=== PATIENT | female | born 1980 | race African-American/Black ===

== ENCOUNTER 2016-08-23 10:58 | Inpatient (IN) | payer OTHER ==
[2016-08-23] MEDS ORDERED: OXYCODONE/APAP 5/325MG COMBO TABLET PO ONE (12:12)
[2016-08-23] MEDS ORDERED: OXYCODONE/APAP 5/325MG COMBO TABLET ONE (12:14)
[2016-08-23] MEDS ORDERED: ACTIVATED CHARCOAL 260 MG CAPSULE PO ONE (14:14)
[2016-08-23] MEDS ORDERED: ACETYLCYSTEINE 20% 200MG/ML 30ML VIAL *FOR INJECTION USE ONLY IVPB ONE ×9 (14:17→17:39)
[2016-08-23] MEDS ORDERED: morphine CARPU-JECT 2 MG/1 ML DISP.SYRIN IVPUSH ONE (14:21)
--- NOTE | 2016-08-23 14:34 | PDOC ---
Attending Attestation - Resident Resident Name: Heather Calleudmila - ED Attending Attestation I have performed the following: I have examined & evaluated the patient, The case was reviewed & discussed with the resident, I agree w/resident's findings & plan, Exceptions are as noted - HPI HPI: 08/23/16 14:26 36y/o F HIV, h/o NHL p/w facial swelling and pain s/p wisdom tooth extraction. Referred from [facility]. reports taking tylenol doses concerning for overdose. - Physicial Exam PE: 08/23/16 14:27 VSS well appearing and ambulating no jaundice - Critical Care Time Total Critical Care Time: 30 Critical Care Statement: The care of this patient involved high complexity decision making to prevent further life threatening deterioration of the patient 's condition and/or to evalute & treat vital organ system(s) failure or risk of failure. - Medical Decision Making 08/23/16 14:30 Patient seen and evaluated with the resident. I agree with the overall evaluation, assessment, and management with the following summary of visit: 36y/o F p/w likely dental infection following tooth extraction, r/o abscess. Will require abx and CT. More concerning, pt has ingested about 15g of tylenol over the last 24h. apap level, LFTs, coags empirically start NAC involve PCC dispo accordingly 08/23/16 16:19 normal ast/alt/INR with apap level 25.6. continue NAC, PCC agrees. r/o facial abscess with CT, receiving IV abx.
[2016-08-23] MEDS ORDERED: morphine CARPU-JECT 2 MG/1 ML DISP.SYRIN ONE (14:44)
[2016-08-23] MEDS ORDERED: CHARCOAL/WATER SOLUTION 25 GM/120 ML TUBE ONE (14:46)
[2016-08-23 15:15] LABS: BASOPHIL 0.5 % (0-2.0); EOSINOPHIL 2.7 % (0-4.5); MCH 27.9 pg (25.7-33.7); MCHC 31.9 g/dl (32.0-36.0); MEAN CELL VOLUME 87.3 fl (80-96); MEAN PLT VOLUME 9.9 fl (7.5-11.1); PLATELET COUNT 211 K/MM3 (134-434); RDW 17.8 % (11.6-15.6); WHITE BLOOD COUNT 3.7 K/mm3 (4.0-10.0)
--- NOTE | 2016-08-23 15:16 | PDOC ---
History of Present Illness - General Chief Complaint: Toothache Stated Complaint: PAIN Time Seen by Provider: 08/23/16 11:13 History Source: Patient Exam Limitations: No Limitations - History of Present Illness Initial Comments: 08/23/16 17:00 This is a 36 yo F with PMH of Non Hodgkin lymphoma (last chemo 3 mo ago, has port, had a brain biopsy), HIV, HTN, opioid dependence on methadone, gastritis, ADHD and bipolar disorder, who presents due to L facial pain. She had a left inferior wisdom tooth extracted 08/16/16 and has been on PO Clindamycin. A few days ago her left cheek became swollen, very painful, causing shooting pains in her face, neck and head. She has a left sided h/a. She has not had f/c or difficulty swallowing. Her pain was so severe that yesterday she tool a whole bottle of her prescribed tylenol and a whole bottle of tylenol given to her by a friend. she also took a bottle of ibuprofen 900. Her total tylenol intake over 24 hr has been 15.5g, 14 g yestarday and 1.5 g today (total over 24 hr: tylenol 300x30 pills+ tylenol 325x20 pills, this includes the percocet she tool at home and here) She denies chest pain, sob, abd pain, n/v, diarrhea, constipation, dysuria, confusion) She receives care at [facility] 08/23/16 17:03 08/23/16 17:11 Past History - Travel Traveled outside of the country in the last 30 days: No Close contact w/someone who was outside of country & ill: No - Past Medical History Allergies/Adverse Reactions: Allergies Allergy/AdvReac Type Severity Reaction Status Date / Time peanut [Peanut] Allergy Hives Verified 08/23/16 11:06 ceftriaxone sodium AdvReac Hives Verified 08/23/16 11:06 [From Rocephin] sulfamethoxazole AdvReac Hives Verified 08/23/16 11:06 [From Bactrim] trimethoprim [From Bactrim] AdvReac Hives Verified 08/23/16 11:06 Home Medications: Ambulatory Orders Amlodipine Besylate 10 mg PO DAILY #30 tablet 07/28/15 Aripiprazole [Abilify] 5 mg PO AM #30 tablet 06/09/16 Lamotrigine [Lamictal] 25 mg PO HS #60 tablet MDD 50mg 08/20/15 Methadone [Dolophine -] 70 mg PO DAILY 08/23/15 Dapsone - 100 mg PO DAILY #30 tablet 02/02/16 Ibuprofen [Motrin -] 600 mg PO QID PRN #28 tablet 02/02/16 Loratadine 10 mg PO DAILY #30 tablet 02/02/16 Ondansetron HCl [Zofran] 8 mg PO Q12H #4 tablet MDD 2 02/02/16 Amlodipine Besylate [Norvasc -] 10 mg PO DAILY #30 tablet 07/16/16 Emtricitab/Rilpivirine/Tenofov [Complera Tablet -] 1 each PO DAILY #30 tablet Enoxaparin [Lovenox -] 120 mg SQ BID #60 disp.syrin 07/16/16 Metoprolol Tartrate [Lopressor -] 25 mg PO DAILY #30 tablet 07/16/16 Anemia: No Asthma: No Cancer: Yes (NON-HODGKINS LYMPHOMA,LAST CHEMO 3 M AGO) Cardiac Disorders: No CVA: No COPD: No CHF: No Dementia: No Diabetes: No GI Disorders: No Disorders: No HTN: Yes Hypercholesterolemia: No HIV: Yes Kidney Stones: No Liver Disease: No Psychiatric Problems: Yes Suicide Attempt (Hx): No Seizures: No Thyroid Disease: No - Surgical History Abdominal Surgery: No Appendectomy: No Cardiac Surgery: No Cholecystectomy: No Lung Surgery: No Neurologic Surgery: No - Reproductive History PID: No - Psycho/Social/Smoking Cessation Hx Anxiety: No Suicidal Ideation: No Smoking Status: Yes Smoking History: Current every day smoker Have you smoked in the past 12 months: Yes Number of Cigarettes Smoked Daily: 10 Cigars Per Day: 0 Information on smoking cessation initiated: No 'Breaking Loose' booklet given: 09/16/14 Hx Alcohol Use: No Drug/Substance Use Hx: No Substance Use Type: None Hx Substance Use Treatment: Yes Review of Systems - Review of Systems Able to Perform ROS?: Yes Is the patient limited [place] proficient: No Constitutional: No: Chills, Fever HEENTM: Yes: Mouth Pain, Dental Problems, Mouth Swelling (left side). No: Blurred Vision, Nose Congestion, Tinnitus, Nose Bleeding, Throat Pain, Throat Swelling, Difficulty Swallowing Respiratory: No: Cough, Orthopnea, Shortness of Breath Cardiac (ROS): No: Chest Pain, Edema, Irregular Heart Rate, Lightheadedness, Palpitations, Syncope ABD/GI: No: Constipated, Diarrhea, Nausea, Rectal Bleeding, Vomiting, Tarry Stools : No: Dysuria, Flank Pain Musculoskeletal: No: Back Pain Integumentary: No: Bruising, Rash, Sweating Neurological: No: Headache, Numbness, Paresthesia, Seizure, Dizziness Psychiatric: No: Anxiety, Depression Endocrine: No: Intolerance to Heat, Increased Hunger, Change in Weight Hematologic/Lymphatic: Yes: Lymph Node Abnormalities, Swollen Glands. No: Anemia, Blood Clots, Easy Bleeding, Easy Bruising All Other Systems: Reviewed and Negative *Physical Exam - Vital Signs Last Vital Signs Temp Pulse Resp BP Pulse Ox 98.6 F 68 18 170/107 98 08/23/16 11:00 08/23/16 11:00 08/23/16 11:00 08/23/16 11:00 08/23/16 11:00 - Physical Exam Comments: 08/23/16 17:13 GENERAL: moderate distress, AAOx3 HEENT: PERRLA EOMI, L cheek indurated, very tender, L inferior wisdom tooth s/p removal, no purulence. No scleral icterus or sublingual jaundice. CV:rrr s1s2 PULM:cta b/l GI: obese, soft, nontender, nondistended, no mass, normoactive bowel sounds SKIN: no lesions EXTREMITIES: no edema 08/23/16 17:15 ED Treatment Course - LABORATORY CBC & Chemistry Diagram: 08/23/16 15:00 08/23/16 15:00 - Medications Given in the ED: ED Medications Discontinued Medications Generic Name Dose Route Start Last Admin Trade Name Freq PRN Reason Stop Dose Admin Morphine Sulfate 2 mg 08/23/16 14:21 08/23/16 14:58 Morphine Injection - IVPUSH 08/23/16 14:22 2 mg ONCE ONE Administration Oxycodone/Acetaminophen 2 combo 08/23/16 12:12 08/23/16 12:18 Percocet 5/325 - PO 08/23/16 12:13 2 combo ONCE ONE Administration Medical Decision Making - Medical Decision Making 08/23/16 17:16 patient presents with clinical picture most consistent with left mandibular abscess s/p dental surgery. r/o abscess, cellulitis, sepsis -CT soft tissue face/neck w contrast -IV clindamycin -1L ns -cbc -lactic acid Patient accidentally overdosed on tylenol. She also took unknown large amt of ibuprofen -tylenol, saliculate levels ordered, activated charcoal, 21 hr NAC protocol ordered -cmp CMP liver AST18, ALT 25 tylenol 25.6, saliculate 4.8 Contacted center for disease control and spoke with Mr Ed Strickland; recommend to treat patient for tylenol OD as levels can raise after 24 hr and liver enzymes can raise after 24 hr as well. Will admit to med sameera 08/23/16 17:19 *DC/Admit/Observation/Transfer Diagnosis at time of Disposition: Abscess of mandible, Acetaminophen overdose - Discharge Dispostion Admit: Yes
[2016-08-23 15:30] LABS: INR 1.04 (0.82-1.09); PROTHROMBIN TIME (PATIENT) 11.5 SEC (9.98-11.88)
[2016-08-23 15:33] LABS: ACTIVATED PTT 35.6 SECONDS (26.9-34.4)
[2016-08-23 15:35] LABS: ALBUMIN 3.8 g/dl (3.4-5.0); ANION GAP 8 (8-16); BILIRUBIN,TOTAL 0.4 mg/dL (0.2-1.0); C-REACTIVE PROTEIN 0.9 MG/DL (0.00-0.3); CALCIUM 8.8 mg/dL (8.5-10.1); CO2 24 mmol/L (21-32); COCKROFT - GAULT 167.025; CREATININE 0.9 mg/dL (0.55-1.02); GLUCOSE,RANDOM 103 mg/dL (74-106); SGOT/AST 18 U/L (15-37); SGPT/ALT 25 U/L (12-78); TOT PROT 7.2 g/dl (6.4-8.2)
[2016-08-23 15:36] LABS: ALK PHOS 118 U/L (45-117)
[2016-08-23 15:43] LABS: BILIRUBIN,DIRECT < 0.1 mg/dL (0.0-0.2)
[2016-08-23] MEDS ORDERED: CHARCOAL/WATER SOLUTION 25 GM/120 ML TUBE PO ONE (16:01)
[2016-08-23 16:02] LABS: ALCOHOL < 5.0 mg/dl (0-5)
[2016-08-23] MEDS ORDERED: morphine CARPU-JECT 4 MG/1 ML DISP.SYRIN IVPUSH ONE (16:13)
[2016-08-23 16:14] LABS: SALICYLATE 4.825 mg/dl (0.0-30.0)
[2016-08-23] MEDS ORDERED: morphine CARPU-JECT 4 MG/1 ML DISP.SYRIN ONE (16:17)
[2016-08-23] MEDS ORDERED: CLINDAMYCIN 600MG PREMIX IVPB 50 ML IVPB ONE ×2 (16:39→17:41)
[2016-08-23] MEDS ORDERED: SODIUM CHLORIDE 1,000 ML IV STA (16:41)
--- NOTE | 2016-08-23 17:28 | EKG ---
Test Reason : Blood Pressure : / mmHG Vent. Rate : 065 BPM Atrial Rate : 065 BPM P-R Int : 146 ms QRS Dur : 074 ms QT Int : 410 ms P-R-T Axes : 039 013 041 degrees QTc Int : 426 ms NORMAL SINUS RHYTHM VOLTAGE CRITERIA FOR LEFT VENTRICULAR HYPERTROPHY ABNORMAL ECG WHEN COMPARED WITH ECG OF 19-JAN-2016 11:39, T WAVE VARIATION Confirmed by CLAUDETTE LYNN MD ([id number]) on 08/23/2016 5:27:56 PM Referred By: Confirmed By:CLAUDETTE LYNN MD
[2016-08-23] MEDS ORDERED: HYDROmorphone HCL CARPU-JECT 2 MG/1 ML DISP.SYRIN IVPUSH ONE (17:41)
--- NOTE | 2016-08-23 17:59 | HP ---
CHIEF COMPLAINT: "My face hurts." PCP: "I don't remember." HISTORY OF PRESENT ILLNESS: This is a 36 yo woman with PMH of HTN, HIV, bipolar disorder and opiate abuse who presents with increased facial pain s/p extraction of tooth #16. She is unsure of whether the tooth was impacted or infected. She tried taking "a lot of Tylenol" and "a whole bunch of 800mg Motrin." ER course was notable for: (1) CT of face (2) APAP OD Recent Travel: denies PAST MEDICAL HISTORY: see HPI PAST SURGICAL HISTORY: tooth extraction 08/19 Social History: Smoking: denies Alcohol: denies Drugs: denies at present Family History: Allergies peanut [Peanut] Allergy (Verified 08/23/16 11:06) Hives ORIGIONAL ENTERED UNCODED, PEANUT BUTTER; RECENT Rx SAYS PEANUTS ceftriaxone sodium [From Rocephin] Adverse Reaction (Verified 08/23/16 11:06) Hives sulfamethoxazole [From Bactrim] Adverse Reaction (Verified 08/23/16 11:06) Hives trimethoprim [From Bactrim] Adverse Reaction (Verified 08/23/16 11:06) Hives HOME MEDICATIONS: Home Medications 3 Medication Instructions Recorded Amlodipine Besylate 10 mg PO DAILY #30 tablet 07/28/15 Aripiprazole [Abilify] 5 mg PO AM #30 tablet 08/20/15 Lamotrigine [Lamictal] 25 mg PO HS #60 tablet MDD 50mg 08/20/15 Methadone [Dolophine -] 70 mg PO DAILY 08/23/15 Dapsone - 100 mg PO DAILY #30 tablet 02/02/16 Ibuprofen [Motrin -] 600 mg PO QID PRN #28 tablet 02/02/16 Loratadine 10 mg PO DAILY #30 tablet 02/02/16 Ondansetron HCl [Zofran] 8 mg PO Q12H #4 tablet MDD 2 02/02/16 Amlodipine Besylate [Norvasc -] 10 mg PO DAILY #30 tablet 07/16/16 Emtricitab/Rilpivirine/Tenofov 1 each PO DAILY #30 tablet 07/16/16 [Complera Tablet -] Enoxaparin [Lovenox -] 120 mg SQ BID #60 disp.syrin 07/16/16 Metoprolol Tartrate [Lopressor -] 25 mg PO DAILY #30 tablet 07/16/16 REVIEW OF SYSTEMS CONSTITUTIONAL: Absent: fever, chills, diaphoresis, generalized weakness, malaise, loss of appetite, weight change HEENT: Present: Left maxillary swelling Absent: rhinorrhea, nasal congestion, throat pain, throat swelling, difficulty swallowing, mouth swelling, ear pain, eye pain, visual changes CARDIOVASCULAR: Absent: chest pain, syncope, palpitations, irregular heart rate, lightheadedness , peripheral edema RESPIRATORY: Absent: cough, shortness of breath, dyspnea with exertion, orthopnea, wheezing, stridor, hemoptysis GASTROINTESTINAL: Absent: abdominal pain, abdominal distension, nausea, vomiting, diarrhea, constipation, melena, hematochezia GENITOURINARY: Absent: dysuria, frequency, urgency, hesitancy, hematuria, flank pain, genital pain MUSCULOSKELETAL: Absent: myalgia, arthralgia, joint swelling, back pain, neck pain SKIN: Absent: rash, itching, pallor HEMATOLOGIC/IMMUNOLOGIC: Absent: easy bleeding, easy bruising, lymphadenopathy, frequent infections ENDOCRINE: Absent: unexplained weight gain, unexplained weight loss, heat intolerance, cold intolerance NEUROLOGIC: Absent: headache, focal weakness or paresthesias, dizziness, unsteady gait, seizure, mental status changes, bladder or bowel incontinence PSYCHIATRIC: Absent: anxiety, depression, suicidal or homicidal ideation, hallucinations. PHYSICAL EXAMINATION Vital Signs - 24 hr 3 08/23/16 11:00 Temperature 98.6 F Pulse Rate 68 Respiratory 18 Rate Blood Pressure 170/107 O2 Sat by Pulse 98 Oximetry (%) GENERAL: Awake, alert, and fully oriented, in no acute distress. HEAD: Normal with no signs of trauma. EYES: Pupils equal, round and reactive to light, extraocular movements intact, sclera anicteric, conjunctiva clear. No lid lag. EARS, NOSE, THROAT: Ears normal, nares patent, oropharynx clear without exudates. Moist mucous membranes. NECK: Normal range of motion, supple without lymphadenopathy, JVD, or masses. LUNGS: Breath sounds equal, clear to auscultation bilaterally. No wheezes, and no crackles. No accessory muscle use. HEART: Regular rate and rhythm, normal S1 and S2 without murmur, rub or gallop. ABDOMEN: Soft, nontender, not distended, normoactive bowel sounds, no guarding, no rebound, no masses. No hepatomegaly or splenomegaly. MUSCULOSKELETAL: Normal range of motion at all joints. No bony deformities or tenderness. No CVA tenderness. UPPER EXTREMITIES: 2+ pulses, warm, well-perfused. No cyanosis. No clubbing. No peripheral edema. LOWER EXTREMITIES: 2+ pulses, warm, well-perfused. No calf tenderness. No peripheral edema. NEUROLOGICAL: Cranial nerves II-XII intact. Normal speech. Normal gait. PSYCHIATRIC: Uncooperative and demanding. Good eye contact. SKIN: Warm, dry, normal turgor, no rashes or lesions noted, normal capillary refill. Laboratory Results - last 24 hr 3 08/23/16 08/23/16 08/23/16 15:00 15:00 15:00 WBC 3.7 L D RBC 4.31 Hgb 12.0 D Hct 37.6 MCV 87.3 MCHC 31.9 L RDW 17.8 H Plt Count 211 D MPV 9.9 Neutrophils % 48.0 D Lymphocytes % 39.5 D Monocytes % 9.3 Eosinophils % 2.7 D Basophils % 0.5 INR PTT (Actin FS) Sodium 141 Potassium 4.0 Chloride 109 H Carbon Dioxide 24 Anion Gap 8 BUN 11 Creatinine 0.9 Creat Clearance w eGFR > 60 Random Glucose 103 Lactic Acid Calcium 8.8 Total Bilirubin 0.4 Direct Bilirubin < 0.1 Cancelled AST 18 ALT 25 Alkaline Phosphatase 118 H D C-Reactive Protein 0.9 H Total Protein 7.2 Albumin 3.8 Serum , Qual Salicylates Acetaminophen Alcohol, Quantitative 3 08/23/16 08/23/16 08/23/16 15:00 15:00 15:00 WBC RBC Hgb Hct MCV MCHC RDW Plt Count MPV Neutrophils % Lymphocytes % Monocytes % Eosinophils % Basophils % INR 1.04 PTT (Actin FS) 35.6 H Sodium Potassium Chloride Carbon Dioxide Anion Gap BUN Creatinine Creat Clearance w eGFR Random Glucose Lactic Acid Calcium Total Bilirubin Direct Bilirubin AST ALT Alkaline Phosphatase C-Reactive Protein Total Protein Albumin Serum , Qual Negative Salicylates 4.825 Acetaminophen 25.626 Alcohol, Quantitative < 5.0 3 08/23/16 15:07 WBC RBC Hgb Hct MCV MCHC RDW Plt Count MPV Neutrophils % Lymphocytes % Monocytes % Eosinophils % Basophils % INR PTT (Actin FS) Sodium Potassium Chloride Carbon Dioxide Anion Gap BUN Creatinine Creat Clearance w eGFR Random Glucose Lactic Acid 0.7 Calcium Total Bilirubin Direct Bilirubin AST ALT Alkaline Phosphatase C-Reactive Protein Total Protein Albumin Serum , Qual Salicylates Acetaminophen Alcohol, Quantitative Imaging: CT neck as read by Dr. Borrero- Essentially normal CT scan of neck with no evidence of mandibular pathology, neck masses or fluid collections. ASSESSMENT/PLAN: A: 36 yo woman with abscess vs dry socket s/p extraction of tooth #16 P: 1. abcess vs dry socket - dilaudid 2mg q4h PRN - clinda 600mg q8h - OMFS consult 2. Accidental APAP OD - 20 hour NAC treatment - avoid tylenol containing meds - repeat LFT's - repeat APAP level in AM 3.HIV - home Complera 4. HTN - metoprolol 50mg - Norvasc 10mg 5. F/E/N - NPO - replete PRN 6. PPX - OOB - Lovenox Dispo- requires observation for her acute medical condition Code Status- FULL CODE Visit type - Emergency Visit Emergency Visit: Yes ED Registration Date: 08/23/16 Care time: The patient presented to the Emergency Department on the above date and was hospitalized for further evaluation of their emergent condition. - New Patient This patient is new to me today: Yes Date on this admission: 08/24/16 - Critical Care Critical Care patient: No
[2016-08-23] MEDS ORDERED: HYDROmorphone HCL CARPU-JECT 2 MG/1 ML DISP.SYRIN ONE (18:02)
[2016-08-23] MEDS ORDERED: KETOROLAC TROMETHAMINE 30 MG/1 ML VIAL IVPUSH ONE (20:08)
[2016-08-23] MEDS: ONDANSETRON 8 MG TABLET (FP) PO SCH (21:02)
--- NOTE | 2016-08-23 21:08 | HOSP ---
Subjective - Review of Symptoms Events since last encounter: Hospitalist Encounter Notified by the primary RN, that the patient was reporting continued pain and requesting more pain medication. Arrived to bedside, Security x3 were outside of room, RN reports the patient became belligerent and was not receptive to further treatment. Discussed with patient her concerns, reassurance and empathy provided. Ordered Toradol 30mg IVPB Patient agrees to plan. Will continue to monitor. HEENT: Yes: Other (L- facial swelling/pain) Physical Examination Vital Signs: Vital Signs Temperature 97.8 F 08/23/16 19:05 Pulse Rate 89 08/23/16 19:05 Respiratory Rate 17 08/23/16 19:05 Blood Pressure 158/107 08/23/16 19:05 O2 Sat by Pulse Oximetry (%) 100 08/23/16 19:05 Constitutional: Yes: Well Nourished, Moderate Distress, Obese HENT: Yes: Other (Left facial swelling) Cardiovascular: Yes: WNL, Regular Rate and Rhythm, S1, S2 Respiratory: Yes: WNL, Regular, CTA Bilaterally Peripheral Pulses WNL: Yes Neurological: Yes: WNL, Alert, Oriented, Cran Nerves II-XII Intact Psychiatric: Yes: WNL, Alert, Oriented, Agitated Labs: Laboratory Results - last 24 hr 08/23/16 08/23/16 08/23/16 15:00 15:00 15:00 WBC 3.7 L D RBC 4.31 Hgb 12.0 D Hct 37.6 MCV 87.3 MCHC 31.9 L RDW 17.8 H Plt Count 211 D MPV 9.9 Neutrophils % 48.0 D Lymphocytes % 39.5 D Monocytes % 9.3 Eosinophils % 2.7 D Basophils % 0.5 ESR 37 H INR PTT (Actin FS) Sodium 141 Potassium 4.0 Chloride 109 H Carbon Dioxide 24 Anion Gap 8 BUN 11 Creatinine 0.9 Creat Clearance w eGFR > 60 Random Glucose 103 Lactic Acid Calcium 8.8 Total Bilirubin 0.4 Direct Bilirubin < 0.1 AST 18 ALT 25 Alkaline Phosphatase 118 H D C-Reactive Protein 0.9 H Total Protein 7.2 Albumin 3.8 Serum , Qual Salicylates Acetaminophen Alcohol, Quantitative 08/23/16 08/23/16 08/23/16 15:00 15:00 15:00 WBC RBC Hgb Hct MCV MCHC RDW Plt Count MPV Neutrophils % Lymphocytes % Monocytes % Eosinophils % Basophils % ESR INR 1.04 PTT (Actin FS) 35.6 H Sodium Potassium Chloride Carbon Dioxide Anion Gap BUN Creatinine Creat Clearance w eGFR Random Glucose Lactic Acid Calcium Total Bilirubin Direct Bilirubin Cancelled AST ALT Alkaline Phosphatase C-Reactive Protein Total Protein Albumin Serum , Qual Salicylates 4.825 Acetaminophen 25.626 Alcohol, Quantitative < 5.0 08/23/16 08/23/16 15:00 15:07 WBC RBC Hgb Hct MCV MCHC RDW Plt Count MPV Neutrophils % Lymphocytes % Monocytes % Eosinophils % Basophils % ESR INR PTT (Actin FS) Sodium Potassium Chloride Carbon Dioxide Anion Gap BUN Creatinine Creat Clearance w eGFR Random Glucose Lactic Acid 0.7 Calcium Total Bilirubin Direct Bilirubin AST ALT Alkaline Phosphatase C-Reactive Protein Total Protein Albumin Serum , Qual Negative Salicylates Acetaminophen Alcohol, Quantitative Current Medications Generic Name Dose Route Start Last Admin Trade Name Freq PRN Reason Stop Dose Admin Amlodipine Besylate 10 mg 08/24/16 10:00 Norvasc - PO DAILY WILY Aripiprazole 5 mg 08/24/16 07:00 Abilify PO AM WILY Dapsone 100 mg 08/24/16 10:00 Dapsone - PO DAILY WILY Emtricitabine/Rilpivirine/Tenofovir 1 each 08/24/16 10:00 Complera - PO DAILY WILY Hydromorphone HCl 2 mg 08/23/16 18:35 Dilaudid Injection - IVPUSH Q4H PRN PAIN Clindamycin Phosphate 50 mls @ 100 mls/hr 08/24/16 02:00 Cleocin 600 Mg Premix Ivpb - IVPB Q8H-IV WILY Lamotrigine 25 mg 08/23/16 22:00 Lamictal - PO HS WILY Metoprolol Tartrate 25 mg 08/24/16 10:00 Lopressor - PO DAILY WILY Ondansetron HCl 8 mg 08/23/16 18:45 Zofran - PO Q12H WILY
[2016-08-23] MEDS ORDERED: ONDANSETRON 8 MG TABLET (FP) PO ONE (21:27)
[2016-08-23] MEDS ORDERED: KETOROLAC TROMETHAMINE 30 MG/1 ML VIAL ONE (21:27)
[2016-08-23] MEDS: lamoTRIgine 25 MG TABLET PO SCH (22:05)
[2016-08-24] MEDS ORDERED: lamoTRIgine 25 MG TABLET ONE (00:06)
[2016-08-24] MEDS ORDERED: oxyCODONE HCL 5 MG TABLET PO ONE (00:18)
[2016-08-24] MEDS: CLINDAMYCIN 600MG PREMIX IVPB 50 ML IVPB SCH ×3 (03:00→17:08)
[2016-08-24] MEDS ORDERED: ACETYLCYSTEINE 20% 200MG/ML 30ML VIAL *FOR INJECTION USE ONLY IVPB ONE (03:15)
[2016-08-24] MEDS ORDERED: CLINDAMYCIN 600MG PREMIX IVPB 50 ML IVPB ONE ×2 (03:27→09:21)
[2016-08-24] MEDS ORDERED: HYDROmorphone HCL CARPU-JECT 2 MG/1 ML DISP.SYRIN ONE ×2 (03:33→07:53)
[2016-08-24] MEDS: HYDROmorphone HCL CARPU-JECT 1 MG/1 ML DISP.SYRIN IVPUSH PRN ×2 (03:41→07:55)
[2016-08-24] MEDS ORDERED: ARIPiprazole 5 MG TABLET (FP) ONE (06:19)
[2016-08-24] MEDS: ARIPiprazole 5 MG TABLET (FP) PO SCH (06:44)
[2016-08-24] MEDS: ONDANSETRON 8 MG TABLET (FP) PO SCH ×2 (06:44→18:35)
[2016-08-24 08:55] LABS: BASOPHIL 4.8 % (0-2.0); EOSINOPHIL 0.9 % (0-4.5); MCH 28.6 pg (25.7-33.7); MEAN CELL VOLUME 86.6 fl (80-96); MEAN PLT VOLUME 9.9 fl (7.5-11.1); NEUTROPHILS 60.8 % (42.8-82.8); PLATELET COUNT 222 K/MM3 (134-434); RDW 17.8 % (11.6-15.6); WHITE BLOOD COUNT 4.5 K/mm3 (4.0-10.0)
[2016-08-24] MEDS ORDERED: KETOROLAC TROMETHAMINE 30 MG/1 ML VIAL IVPUSH ONE (09:10)
[2016-08-24] MEDS ORDERED: KETOROLAC TROMETHAMINE 15 MG/ML VIAL ONE (09:21)
[2016-08-24] MEDS ORDERED: METHADONE HCL 40 MG DISPERSABLE TABLET ONE (09:21)
[2016-08-24] MEDS ORDERED: METHADONE HCL 10 MG TABLET ONE (09:21)
[2016-08-24] MEDS: DAPSONE 100 MG TABLET PO SCH (09:40)
[2016-08-24] MEDS: amLODIPine BESYLATE 10 MG TABLET (FP) PO SCH (09:40)
[2016-08-24] MEDS: METHADONE 40 MG, METHADONE 20 MG PO SCH (09:40)
[2016-08-24] MEDS ORDERED: METOPROLOL TARTRATE 25 MG TABLET (FP) PO SCH (10:00)
[2016-08-24] MEDS ORDERED: METHADONE HCL 10 MG TABLET PO SCH (10:00)
[2016-08-24 10:09] LABS: ALBUMIN 3.5 g/dl (3.4-5.0); ALK PHOS 123 U/L (45-117); ANION GAP 14 (8-16); BILIRUBIN,TOTAL 0.5 mg/dL (0.2-1.0); CO2 19 mmol/L (21-32); COCKROFT - GAULT 187.935; CREATININE 0.8 mg/dL (0.55-1.02); GLUCOSE,RANDOM 134 mg/dL (74-106); SGOT/AST 19 U/L (15-37); SGPT/ALT 26 U/L (12-78)
--- NOTE | 2016-08-24 10:47 | PN ---
Physical Exam: SUBJECTIVE: Patient seen and examined. She verbalizing pain in her mouth with occasional headaches. OBJECTIVE: left maxillary swelling pain and likely infection CT soft tissue and neck shows normal CT with no evidence of mandibular pathology , neck mass or fluid collection On Clindamycin IV Saline gargles q4 Toradol q6 as needed for pain Patient is hypertensive in ER 203/100s, denies chest pain, shortness of breath Cardiology consulted for hypertensive urgency, increased Metoprolol to 50mg Patient states she often gets headaches at home, which is likely secondary to her elevated BPs Acetaminophen levels improved Vital Signs Period Temp Pulse Resp BP Sys/Wilcox Pulse Ox Last 24 Hr 97.8 F-98.3 F 79-89 17-17 158-203/92-121 98-100 ENERAL: Awake, alert, and fully oriented, in no acute distress. HEAD: +Left maxillary swelling +pain EYES: Pupils equal, round and reactive to light, extraocular movements intact, sclera anicteric, conjunctiva clear. No lid lag. EARS, NOSE, THROAT: Ears normal, nares patent, oropharynx clear without exudates. Moist mucous membranes. NECK: Normal range of motion, supple without lymphadenopathy, JVD, or masses. LUNGS: Breath sounds equal, clear to auscultation bilaterally. No wheezes, and no crackles. No accessory muscle use. HEART: Regular rate and rhythm, normal S1 and S2 without murmur, rub or gallop. ABDOMEN: Soft, nontender, not distended, normoactive bowel sounds, no guarding, no rebound, no masses. No hepatomegaly or splenomegaly. MUSCULOSKELETAL: Normal range of motion at all joints. No bony deformities or tenderness. No CVA tenderness. UPPER EXTREMITIES: 2+ pulses, warm, well-perfused. No cyanosis. No clubbing. No peripheral edema. LOWER EXTREMITIES: 2+ pulses, warm, well-perfused. No calf tenderness. No peripheral edema. NEUROLOGICAL: Cranial nerves II-XII intact. Normal speech. Normal gait. PSYCHIATRIC: cooperative with good eye contact. SKIN: Warm, dry, normal turgor, no rashes or lesions noted, normal capillary refill. Laboratory Results - last 24 hr 08/24/16 08/24/16 08/24/16 07:40 07:40 07:40 WBC 4.5 RBC 4.54 Hgb 13.0 Hct 39.3 MCV 86.6 MCHC 33.0 RDW 17.8 H Plt Count 222 MPV 9.9 Neutrophils % 60.8 D Lymphocytes % 22.5 D Monocytes % 11.0 H Eosinophils % 0.9 Basophils % 4.8 H D Sodium 138 Potassium 3.9 Chloride 105 Carbon Dioxide 19 L D Anion Gap 14 BUN 7 D Creatinine 0.8 Creat Clearance w eGFR > 60 Random Glucose 134 H D Calcium 9.0 Total Bilirubin 0.5 D AST 19 ALT 26 Alkaline Phosphatase 123 H Total Protein 7.0 Albumin 3.5 Lipase 113 Salicylates Acetaminophen < 2.000 L 08/24/16 09:50 WBC RBC Hgb Hct MCV MCHC RDW Plt Count MPV Neutrophils % Lymphocytes % Monocytes % Eosinophils % Basophils % Sodium Potassium Chloride Carbon Dioxide Anion Gap BUN Creatinine Creat Clearance w eGFR Random Glucose Calcium Total Bilirubin AST ALT Alkaline Phosphatase Total Protein Albumin Lipase Salicylates 4.219 Acetaminophen Active Medications Generic Name Dose Route Start Last Admin Trade Name Freq PRN Reason Stop Dose Admin Amlodipine Besylate 10 mg 08/24/16 10:00 08/24/16 09:40 Norvasc - PO 10 mg DAILY WILY Administration Aripiprazole 5 mg 08/24/16 07:00 08/24/16 06:44 Abilify PO Not Given AM WILY Dapsone 100 mg 08/24/16 10:00 08/24/16 09:40 Dapsone - PO 100 mg DAILY WILY Administration Emtricitabine/Rilpivirine/Tenofovir 1 each 08/24/16 10:00 Complera - PO DAILY WILY Clindamycin Phosphate 50 mls @ 100 mls/hr 08/24/16 02:00 08/24/16 09:40 Cleocin 600 Mg Premix Ivpb - IVPB 100 mls/hr Q8H-IV WILY Administration Lamotrigine 25 mg 08/23/16 22:00 08/23/16 22:05 Lamictal - PO 25 mg HS WILY Administration Methadone HCl 40 mg/ Methadone 60 mg 08/24/16 10:00 08/24/16 09:40 HCl 20 mg PO 60 mg DAILY WILY Administration Metoprolol Tartrate 25 mg 08/24/16 10:00 08/24/16 09:40 Lopressor - PO 25 mg DAILY WILY Administration Ondansetron HCl 8 mg 08/23/16 18:45 06/14/17 06:44 Zofran - PO 8 mg Q12H WILY Administration ASSESSMENT/PLAN: Patient is a 36 year old female with a significant past medical history of NHL ( non hodgkins lymphoma) s/p chemo, hypertension, +HIV on antivirals, ADHD, bipolar disorder and polysubstance abuse. She presented to the ER on 08/23/2016 with left sided facial pain after an inferior wisdom tooth extraction on 2016 and was on PO Amoxicillin. A few days ago her cheeks became swollen, painful to touch and difficulty for her to open her mouth. She also complains of a left sided headache on admission. She was having severe pain at home and took a large amount of Acetaminophen and Motrin. As per ER notes, see was taking a "total over 24 hr: tylenol 300x30 pills+ tylenol 325x20 pills. She denies chest pain, shortness of breath, abdominal pain, nausea, vomiting, diarrhea, constipation. While in the ER her blood pressure became severely elevated 203/100s, and her Metoprolol was increased. Cardiology was asked to evaluate. Imagin08/23/2016: CT Soft tissue of left neck with contrast - normal scan no evidence of manidibular pathology, neck mass or fluid collection. 08/22/2016: EKG: NSR voltage criteria for left ventricular hypertrophy when compared w/EKG of 01/2016 t wave variation ID: Left Mandible Tissue infection s/p wisdom tooth extraction Assessment/Plan: On Clindamycin 600mg q8, on Dapsone CT shows no evidence of mandibular pathology, neck mass or fluid collection She is able to open her mouth minimally, + pain Continue on soft diet Saline gargles q 4 ID consulted and following HIV + Assessment/Plan: As per [facility] records HIV/AIDS on 07/2016 VL <20, CD4 >239 while on Complera Followed by ID at the [facility] Cardiology: Hypertensive Urgency - likely chronic Assessment/Plan: BP elevated >200/100s in ER She is on Metoprolol 25mg daily, increased today to 50mg On Norvasc 10mg daily, Lisinopril 5mg added Cardiology consult for hypertensive urgency F.E.N. Fluids: Tolerating PO Electrolytes: monitor with BMP Nutrition: soft diet Prophylaxis: Heparin TID GI: Protonix Disposition: Full Code. Visit type - Emergency Visit Emergency Visit: Yes ED Registration Date: 08/23/16 Care time: The patient presented to the Emergency Department on the above date and was hospitalized for further evaluation of their emergent condition. - New Patient This patient is new to me today: Yes Date on this admission: 08/24/16 - Critical Care Critical Care patient: No - Discharge Referral Referred to [facility] No
[2016-08-24] MEDS: METOPROLOL TARTRATE 25 MG TABLET (FP) PO ONE ×2 (11:09→11:48)
[2016-08-24] MEDS ORDERED: METOPROLOL TARTRATE 25 MG TABLET (FP) ONE (11:46)
[2016-08-24] MEDS: EMTRICITAB/RILPIVIRINE/TENOFOV 1 EACH TABLET PO SCH (11:48)
[2016-08-24 13:01] VITALS: BMI 43.2
[2016-08-24] MEDS: KETOROLAC TROMETHAMINE 10 MG TABLET PO PRN ×2 (13:24→21:59)
--- NOTE | 2016-08-24 15:35 | PN ---
Progress Note (short form) - Note Progress Note: Please see full consult dictated by Dr Tang yesterday patient was sent from [facility] with severe pain on amoxicillin after wisdom tooth extraction on the left lower mandible also severe HTN this afternoon is feeling better less pain, still with high bp Vital Signs Period Temp Pulse Resp BP Sys/Wilcox Pulse Ox Last 24 Hr 97.8 F-99.0 F 67-89 16-20 150-203/92-123 97-100 minimal swelling of the face, some erythema of the site surrounding the tooth no difficulty opening her mouth supple neck no fluctuance cor-rrr lungs clear abd soft,nt ext no edema CBC, BMP 08/24/16 07:40 08/24/16 07:40 Microbiology 08/23/16 15:08 Blood - Peripheral Venous Blood Culture - Preliminary NO GROWTH OBTAINED AFTER 24 HOURS, INCUBATION TO CONTINUE FOR 4 DAYS. 08/23/16 15:00 Blood - Peripheral Venous Blood Culture - Preliminary NO GROWTH OBTAINED AFTER 24 HOURS, INCUBATION TO CONTINUE FOR [address] scan of neck no abscess a/p dental pain s/p dental extraction- can easily open her mouth, minimal swelling continue clindamycin htn- per medicine, cardiology to see hiv- stable- continue complera s/p outsole beveler lymphoma
[2016-08-24] MEDS ORDERED: ONDANSETRON 4 MG TABLET PO SCH (15:50)
[2016-08-24] MEDS ORDERED: LISINOPRIL 5 MG TABLET (FP) PO SCH (16:00)
[2016-08-24] MEDS ORDERED: morphine CARPU-JECT 2 MG/1 ML DISP.SYRIN IVPB ONE (16:49)
[2016-08-24] MEDS ORDERED: PT OWN MED DRAWER 7, Y5N ONE ×2 (17:40→21:09)
[2016-08-24] MEDS ORDERED: KETOROLAC TROMETHAMINE 15 MG/ML VIAL IVPUSH ONE (18:22)
[2016-08-24] MEDS ORDERED: LISINOPRIL 5 MG TABLET (FP) PO ONE (18:23)
[2016-08-24] MEDS: ONDANSETRON 4 MG TABLET PO SCH (18:41)
[2016-08-24] MEDS: METOPROLOL TARTRATE 50 MG TABLET (FP) PO SCH (21:58)
[2016-08-24] MEDS: lamoTRIgine 25 MG TABLET PO SCH (22:02)
[2016-08-25] MEDS: CLINDAMYCIN 600MG PREMIX IVPB 50 ML IVPB SCH ×3 (01:20→18:56)
[2016-08-25] MEDS: KETOROLAC TROMETHAMINE 10 MG TABLET PO PRN ×5 (04:26→23:30)
[2016-08-25] MEDS: ARIPiprazole 5 MG TABLET (FP) PO SCH (06:08)
[2016-08-25] MEDS: ONDANSETRON 4 MG TABLET PO SCH ×2 (06:08→18:58)
[2016-08-25 08:49] LABS: BASOPHIL 1.2 % (0-2.0); EOSINOPHIL 1.6 % (0-4.5); MCH 28.6 pg (25.7-33.7); MCHC 33.1 g/dl (32.0-36.0); MEAN CELL VOLUME 86.5 fl (80-96); MEAN PLT VOLUME 9.5 fl (7.5-11.1); NEUTROPHILS 50.2 % (42.8-82.8); PLATELET COUNT 197 K/MM3 (134-434); RDW 18.1 % (11.6-15.6); WHITE BLOOD COUNT 3.6 K/mm3 (4.0-10.0)
[2016-08-25 09:24] LABS: ALBUMIN 3.4 g/dl (3.4-5.0); ALK PHOS 106 U/L (45-117); ANION GAP 7 (8-16); BILIRUBIN,TOTAL 0.7 mg/dL (0.2-1.0); CALCIUM 9.1 mg/dL (8.5-10.1); CO2 28 mmol/L (21-32); COCKROFT - GAULT 160.8795; CREATININE 0.9 mg/dL (0.55-1.02); GLUCOSE,RANDOM 112 mg/dL (74-106); SGPT/ALT 31 U/L (12-78); TOT PROT 6.4 g/dl (6.4-8.2)
[2016-08-25 09:45] LABS: SGOT/AST 33 U/L (15-37)
[2016-08-25] MEDS ORDERED: METOPROLOL TARTRATE 50 MG TABLET (FP) PO SCH ×2 (10:00→22:00)
[2016-08-25] MEDS ORDERED: METHADONE HCL 10 MG TABLET ONE (10:41)
[2016-08-25] MEDS ORDERED: PT OWN MED DRAWER 7, Y5N ONE ×2 (10:43→21:22)
[2016-08-25] MEDS: METOPROLOL TARTRATE 50 MG TABLET (FP) PO SCH (10:49)
[2016-08-25] MEDS: amLODIPine BESYLATE 10 MG TABLET (FP) PO SCH (10:49)
[2016-08-25] MEDS: METHADONE 40 MG, METHADONE 20 MG PO SCH (10:50)
[2016-08-25] MEDS: LISINOPRIL 10 MG TABLET (FP) PO SCH (10:50)
[2016-08-25] MEDS: DAPSONE 100 MG TABLET PO SCH (10:51)
[2016-08-25] MEDS: EMTRICITAB/RILPIVIRINE/TENOFOV 1 EACH TABLET PO SCH (10:51)
--- NOTE | 2016-08-25 11:39 | PN ---
Physical Exam: SUBJECTIVE: Patient seen and examined. She is sitting up in bed, states mouth pain is better but not fully controlled. OBJECTIVE: Blood pressures remain elevated Lisinopril 10mg started yesterday, also on Amlodopine 10mg daily Coreq 6.25mg BID added by cardiology Vital Signs Period Temp Pulse Resp BP Sys/Wilcox Pulse Ox Last 24 Hr 98.4 F-99.0 F 55-78 16-20 109-193/65-133 100-100 GENERAL: Awake, alert, and fully oriented, in no acute distress. HEAD: +Left maxillary swelling +pain, pain not yet controlled but she is able to open her mouth wider today on exam EYES: Pupils equal, round and reactive to light, extraocular movements intact, sclera anicteric, conjunctiva clear. No lid lag. EARS, NOSE, THROAT: Ears normal, nares patent, oropharynx clear without exudates. Moist mucous membranes. NECK: Normal range of motion, supple without lymphadenopathy, JVD, or masses. LUNGS: Breath sounds equal, No accessory muscle use. HEART: Regular rate and rhythm, normal S1 and S2 without murmur, rub or gallop. ABDOMEN: Soft, nontender, not distended, normoactive bowel sounds, no guarding, no rebound, no masses. No hepatomegaly or splenomegaly. MUSCULOSKELETAL: Normal range of motion at all joints. No bony deformities or tenderness. No CVA tenderness. UPPER EXTREMITIES: 2+ pulses, warm, well-perfused. No cyanosis. No clubbing. No peripheral edema. LOWER EXTREMITIES: 2+ pulses, warm, well-perfused. No calf tenderness. No peripheral edema. NEUROLOGICAL: Cranial nerves II-XII intact. Normal speech. Normal gait. PSYCHIATRIC: cooperative with good eye contact. SKIN: Warm, dry, normal turgor, no rashes or lesions noted, normal capillary refill. Laboratory Results - last 24 hr 08/25/16 08/25/16 08/25/16 08:00 08:00 08:00 WBC 3.6 L RBC 4.30 Hgb 12.3 Hct 37.2 MCV 86.5 MCHC 33.1 RDW 18.1 H Plt Count 197 MPV 9.5 Neutrophils % 50.2 Lymphocytes % 30.7 D Monocytes % 16.3 H Eosinophils % 1.6 Basophils % 1.2 Sodium 140 Potassium 3.8 Chloride 105 Carbon Dioxide 28 D Anion Gap 7 L BUN 9 D Creatinine 0.9 Creat Clearance w eGFR > 60 Random Glucose 112 H Hemoglobin A1c % 6.4 H D Calcium 9.1 Total Bilirubin 0.7 D AST 33 D ALT 31 Alkaline Phosphatase 106 Total Protein 6.4 Albumin 3.4 Active Medications Generic Name Dose Route Start Last Admin Trade Name Freq PRN Reason Stop Dose Admin Amlodipine Besylate 10 mg 08/24/16 10:00 08/25/16 10:49 Norvasc - PO 10 mg DAILY WILY Administration Aripiprazole 5 mg 08/24/16 07:00 08/25/16 06:08 Abilify PO Not Given AM WILY Dapsone 100 mg 08/24/16 10:00 08/25/16 10:51 Dapsone - PO 100 mg DAILY WILY Administration Emtricitabine/Rilpivirine/Tenofovir 1 each 08/24/16 10:00 08/25/16 10:51 Complera - PO 1 each DAILY WILY Administration Clindamycin Phosphate 50 mls @ 100 mls/hr 08/24/16 02:00 08/25/16 10:52 Cleocin 600 Mg Premix Ivpb - IVPB 100 mls/hr Q8H-IV WILY Administration Ketorolac Tromethamine 10 mg 08/24/16 10:46 08/25/16 10:52 Toradol PO 08/29/16 11:59 10 mg Q6HPO PRN Administration pain Lamotrigine 25 mg 08/23/16 22:00 08/24/16 22:02 Lamictal - PO Not Given HS WILY Lisinopril 10 mg 08/25/16 10:00 08/25/16 10:50 Prinivil PO 10 mg DAILY WILY Administration Methadone HCl 40 mg/ Methadone 60 mg 08/24/16 10:00 08/25/16 10:50 HCl 20 mg PO 60 mg DAILY WILY Administration Metoprolol Tartrate 50 mg 08/24/16 22:00 08/25/16 10:49 Lopressor - PO 50 mg BID WILY Administration Ondansetron HCl 8 mg 08/24/16 19:00 08/25/16 06:08 Zofran - PO Not Given Q12H WILY ASSESSMENT/PLAN: Patient is a 36 year old female with a significant past medical history of NHL ( non hodgkins lymphoma) s/p chemo, hypertension, +HIV on antivirals, ADHD, bipolar disorder and polysubstance abuse. She presented to the ER on 08/23/2016 with left sided facial pain after an inferior wisdom tooth extraction on 2016 and was on PO Amoxicillin. A few days ago her cheeks became swollen, painful to touch and difficulty for her to open her mouth. She also complains of a left sided headache on admission. She was having severe pain at home and took a large amount of Acetaminophen and Motrin. As per ER notes, see was taking a "total over 24 hr: tylenol 300x30 pills+ tylenol 325x20 pills. She denies chest pain, shortness of breath, abdominal pain, nausea, vomiting, diarrhea, constipation. While in the ER her blood pressure became severely elevated 203/100s, and her Metoprolol was increased. Cardiology was asked to evaluate. Imagin08/23/2016: CT Soft tissue of left neck with contrast - normal scan no evidence of manidibular pathology, neck mass or fluid collection. 08/22/2016: EKG: NSR voltage criteria for left ventricular hypertrophy when compared w/EKG of 01/2016 t wave variation ID: Left Mandible Tissue infection s/p wisdom tooth extraction - improving Assessment/Plan: On Clindamycin 600mg q8, on Dapsone CT shows no evidence of mandibular pathology, neck mass or fluid collection She is able to open her mouth better today, still having pain Toradol PO q4 Continue on soft diet Saline gargles q 4 ID consulted and following HIV + Assessment/Plan: As per [facility] records HIV/AIDS on 07/2016 VL <20, CD4 >239 while on Complera Followed by ID at the [facility] Cardiology: Hypertensive Urgency - improving with uptitration of medications Assessment/Plan: BP elevated >200/100s in ER Lisinopril 10mg started yesterday, also on Amlodopine 10mg daily Coreq 6.25mg BID added by cardiology Cardiology following F.E.N. Fluids: Tolerating PO Electrolytes: monitor with BMP Nutrition: soft diet Prophylaxis: Ambulation GI: Protonix Disposition: Full Code. Visit type - Emergency Visit Emergency Visit: Yes ED Registration Date: 08/23/16 Care time: The patient presented to the Emergency Department on the above date and was hospitalized for further evaluation of their emergent condition. - New Patient This patient is new to me today: No - Critical Care Critical Care patient: No - Discharge Referral Referred to [facility] No
--- NOTE | 2016-08-25 11:51 | PN ---
Progress Note, Physician Chief Complaint: ID Still complains of pain left jaw area following extraction No fever Requires a good deal of analgesics Methadone - Current Medication List Current Medications: Active Medications Amlodipine Besylate (Norvasc -) 10 mg PO DAILY [facility] Last Admin: 08/25/16 10:49 Dose: 10 mg Aripiprazole (Abilify) 5 mg PO AM [facility] Last Admin: 08/25/16 06:08 Dose: Not Given Dapsone (Dapsone -) 100 mg PO DAILY [facility] Last Admin: 08/25/16 10:51 Dose: 100 mg Emtricitabine/Rilpivirine/Tenofovir (Complera -) 1 each PO DAILY [facility] Last Admin: 08/25/16 10:51 Dose: 1 each Clindamycin Phosphate (Cleocin 600 Mg Premix Ivpb -) 50 mls @ 100 mls/hr IVPB Q8H-IV [facility] Last Admin: 08/25/16 10:52 Dose: 100 mls/hr Ketorolac Tromethamine (Toradol) 10 mg PO Q6HPO PRN PRN Reason: pain Stop: 08/29/16 11:59 Last Admin: 08/25/16 10:52 Dose: 10 mg Lamotrigine (Lamictal -) 25 mg PO HS [facility] Last Admin: 08/24/16 22:02 Dose: Not Given Lisinopril (Prinivil) 10 mg PO DAILY [facility] Last Admin: 08/25/16 10:50 Dose: 10 mg Methadone HCl 40 mg/ Methadone (HCl 20 mg) 60 mg PO DAILY [facility] Last Admin: 08/25/16 10:50 Dose: 60 mg Metoprolol Tartrate (Lopressor -) 50 mg PO BID [facility] Last Admin: 08/25/16 10:49 Dose: 50 mg Ondansetron HCl (Zofran -) 8 mg PO Q12H [facility] Last Admin: 08/25/16 06:08 Dose: Not Given - Objective Vital Signs: Vital Signs Temperature 98.4 F 08/25/16 06:00 Pulse Rate 66 08/25/16 06:00 Respiratory Rate 20 08/25/16 06:00 Blood Pressure 149/112 08/25/16 06:00 O2 Sat by Pulse Oximetry (%) 100 08/24/16 21:00 HENT: Yes: Other (Tenderness left side of face mild swelling Mouth extraction site looks clean) Neck: Yes: WNL, Supple Cardiovascular: Yes: Regular Rate and Rhythm, S1, S2 Respiratory: Yes: WNL, Regular, CTA Bilaterally Gastrointestinal: Yes: Soft. No: Tenderness Labs: CBC, BMP 08/25/16 08:00 08/25/16 08:00 INR, PTT INR 1.04 (0.82-1.09) 08/23/16 15:00 Assessment/Plan Laboratory Tests 08/25/16 08/25/16 08:00 08:00 WBC 3.6 L RBC 4.30 Plt Count 197 Creatinine 0.9 Creat Clearance w eGFR > 60 Random Glucose 112 H Assessment Pain manangement though findings for infection and lack of response to treatment bit hard to understand Plan Once her BP controlled can discharge on oral clinda wiath plant to follow with oral surgeon Will help her make appt Kitty SOFIA
[2016-08-25] MEDS ORDERED: METOPROLOL TARTRATE 25 MG TABLET (FP) PO ONE ×2 (12:00→15:00)
--- NOTE | 2016-08-25 13:21 | CON.CARD ---
Consult Consult Specialty:: Cardiology Referred by:: Hospitalist Medicine Reason for Consultation:: Hypertensive urgency - History of Present Illness Chief Complaint: Dental pain History of Present Illness: 36 yo h/o HIV from 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 (gives history of endocarditis many years ago) Cardio/Vascular: Yes: HTN Gastrointestinal: Yes: Gastritis ...LMP: 07/11/16 ...: No Infectious Disease: Yes: HIV Psych: Yes: Bipolar, Other (adhd) - Past Surgical History Past Surgical History: Yes: None - Alcohol/Substance Use Hx Alcohol Use: No History of Substance Use: reports: Marijuana - Smoking History Smoking history: Current every day smoker Have you smoked in the past 12 months: Yes Aproximately how many cigarettes per day: 10 - Social History Usual Living Arrangement: Alone ADL: Independent History of Recent Travel: No Home Medications - Allergies Allergies/Adverse Reactions: Allergies Allergy/AdvReac Type Severity Reaction Status Date / Time peanut [Peanut] Allergy Hives Verified 08/23/16 11:06 ceftriaxone sodium AdvReac Hives Verified 08/23/16 11:06 [From Rocephin] sulfamethoxazole AdvReac Hives Verified 08/23/16 11:06 [From Bactrim] trimethoprim [From Bactrim] AdvReac Hives Verified 08/23/16 11:06 - Home Medications Home Medications: Ambulatory Orders Amlodipine Besylate 10 mg PO DAILY #30 tablet 07/28/15 Methadone [Dolophine -] 60 mg PO DAILY 08/23/15 Ibuprofen [Motrin -] 600 mg PO QID PRN #28 tablet 02/02/16 Ondansetron HCl [Zofran] 8 mg PO Q12H #4 tablet MDD 2 02/02/16 Emtricitab/Rilpivirine/Tenofov [Complera Tablet -] 1 each PO DAILY #30 tablet Enoxaparin [Lovenox -] 120 mg SQ BID #60 disp.syrin 07/16/16 Metoprolol Tartrate [Lopressor -] 25 mg PO DAILY #30 tablet 07/16/16 Acetaminophen [Tylenol .Regular Strength -] 650 mg PO Q4H 08/24/16 Acetaminophen with Codeine [Tylenol with Codeine #3 Tablet] 1 each PO Q4H Amoxicillin - [Amoxicillin 500mg Capsule -] 500 mg PO TID 08/24/16 Family Disease History - Family Disease History Family Disease History: CA: Father, Other: Mother (Alzheimer's disease), Sister (Denies having siblings), Daughter (denies having children) Review of Systems - Review of Systems HENT: reports: Other (Dental pain) Vital Signs: Vital Signs Temperature 98.4 F 08/25/16 06:00 Pulse Rate 66 08/25/16 06:00 Respiratory Rate 20 08/25/16 06:00 Blood Pressure 149/112 08/25/16 06:00 O2 Sat by Pulse Oximetry (%) 100 08/24/16 21:00 Constitutional: Yes: No Distress, Calm Neck: Yes: Supple Respiratory: Yes: Regular, CTA Bilaterally Gastrointestinal: Yes: Normal Bowel Sounds, Soft, Abdomen, Obese Cardiovascular: Yes: Regular Rate and Rhythm JVD: No Carotid Bruit: No Heart Sounds: Yes: S1, S2 Edema: No - Other Data Labs, Other Data: CBC, BMP 08/25/16 08:00 08/25/16 08:00 INR, PTT INR 1.04 (0.82-1.09) 08/23/16 15:00 NSR @ 65 LVH Ejection Fraction %: LVEF > or = 40 % Problem List - Problems (1) AIDS (acquired immune deficiency syndrome) Code(s): B20 - HUMAN IMMUNODEFICIENCY VIRUS [HIV] DISEASE (2) 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 Hypertensive urgency improving 2. Post-extraction dental pain 3. HIV 4. NHL P:1. Continue Norvasc 10 qd, Lopressor 50 bid, lisinopril 10 qd with uptitration as hemodynamics tolerate 2. Complete abx course with oral surgeon f/u 3. Obtain echocardiogram report from [facility] 4. Thank you for consultative opportunity
[2016-08-25] MEDS: CARVEDILOL 6.25 MG TABLET (FP) PO SCH ×2 (15:00→22:15)
[2016-08-25] MEDS: lamoTRIgine 25 MG TABLET PO SCH (22:15)
[2016-08-26] MEDS: CLINDAMYCIN 600MG PREMIX IVPB 50 ML IVPB SCH ×2 (01:34→09:24)
[2016-08-26] MEDS: KETOROLAC TROMETHAMINE 10 MG TABLET PO PRN ×2 (05:54→22:35)
[2016-08-26] MEDS: ONDANSETRON 4 MG TABLET PO SCH ×2 (06:02→19:08)
[2016-08-26] MEDS: ARIPiprazole 5 MG TABLET (FP) PO SCH (06:02)
[2016-08-26] MEDS ORDERED: METHADONE HCL 10 MG TABLET ONE (09:09)
[2016-08-26] MEDS ORDERED: METHADONE HCL 40 MG DISPERSABLE TABLET ONE (09:09)
[2016-08-26] MEDS: amLODIPine BESYLATE 10 MG TABLET (FP) PO SCH (09:25)
[2016-08-26] MEDS: CARVEDILOL 6.25 MG TABLET (FP) PO SCH ×2 (09:25→22:18)
[2016-08-26] MEDS: LISINOPRIL 10 MG TABLET (FP) PO SCH (09:25)
[2016-08-26] MEDS: METHADONE 40 MG, METHADONE 20 MG PO SCH (09:25)
[2016-08-26] MEDS: EMTRICITAB/RILPIVIRINE/TENOFOV 1 EACH TABLET PO SCH (09:27)
[2016-08-26] MEDS: DAPSONE 100 MG TABLET PO SCH ×2 (09:27→10:09)
--- NOTE | 2016-08-26 12:22 | PN ---
Progress Note, Physician History of Present Illness: Dental pain improving, BP still elevated. - Current Medication List Current Medications: Active Medications Amlodipine Besylate (Norvasc -) 10 mg PO DAILY [facility] Last Admin: 08/26/16 09:25 Dose: 10 mg Aripiprazole (Abilify) 5 mg PO AM [facility] Last Admin: 08/26/16 06:02 Dose: Not Given Carvedilol (Coreg -) 6.25 mg PO BID [facility] Last Admin: 08/26/16 09:25 Dose: 6.25 mg Dapsone (Dapsone -) 100 mg PO DAILY [facility] Last Admin: 08/26/16 10:09 Dose: Not Given Emtricitabine/Rilpivirine/Tenofovir (Complera -) 1 each PO DAILY [facility] Last Admin: 08/26/16 09:27 Dose: 1 each Clindamycin Phosphate (Cleocin 600 Mg Premix Ivpb -) 50 mls @ 100 mls/hr IVPB Q8H-IV [facility] Last Admin: 08/26/16 09:24 Dose: 100 mls/hr Ketorolac Tromethamine (Toradol) 10 mg PO Q4HPO PRN PRN Reason: pain Stop: 08/29/16 10:45 Last Admin: 08/26/16 05:54 Dose: 10 mg Lamotrigine (Lamictal -) 25 mg PO HS [facility] Last Admin: 08/25/16 22:15 Dose: Not Given Lisinopril (Prinivil) 10 mg PO DAILY [facility] Last Admin: 08/26/16 09:25 Dose: 10 mg Methadone HCl 40 mg/ Methadone (HCl 20 mg) 60 mg PO DAILY [facility] Last Admin: 08/26/16 09:25 Dose: 60 mg Ondansetron HCl (Zofran -) 8 mg PO Q12H [facility] Last Admin: 08/26/16 06:02 Dose: Not Given - Objective Vital Signs: Vital Signs Temperature 98.5 F 08/26/16 09:06 Pulse Rate 69 08/26/16 09:06 Respiratory Rate 18 08/26/16 09:06 Blood Pressure 171/107 08/26/16 09:06 O2 Sat by Pulse Oximetry (%) 100 08/26/16 09:00 Constitutional: Yes: No Distress, Calm Neck: Yes: Supple Cardiovascular: Yes: Regular Rate and Rhythm Respiratory: Yes: Regular, Diminished Gastrointestinal: Yes: Normal Bowel Sounds, Soft Edema: No Labs: CBC, BMP 08/25/16 08:00 08/25/16 08:00 INR, PTT INR 1.04 (0.82-1.09) 08/23/16 15:00 Problem List - Problems (1) AIDS (acquired immune deficiency syndrome) Code(s): B20 - HUMAN IMMUNODEFICIENCY VIRUS [HIV] DISEASE (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 Hypertensive urgency improving 2. Post-extraction dental pain 3. HIV 4. NHL P:1. Continue Norvasc 10 qd, increase carvedilol 12.5 bid, lisinopril 10 qd with uptitration as hemodynamics tolerate 2. Complete abx course with oral surgeon f/u 3. July f/u with [facility] for BP management
[2016-08-26] MEDS ORDERED: CARVEDILOL 6.25 MG TABLET (FP) PO ONE (12:42)
[2016-08-26] MEDS ORDERED: KETOROLAC TROMETHAMINE 10 MG TABLET PO PRN (13:04)
--- NOTE | 2016-08-26 13:06 | PN ---
Physical Exam: SUBJECTIVE: Patient seen and examined. She is still having left maxillary pain. Toradol increased. OBJECTIVE: ID cleared for discharge on Clindamycin 300mg q8 hours x 1 week. Patient still having elevated blood pressures, Coreg increased from 6.25mg BID to 12.5mg BID by cardiology for hypertensive urgency. Made appointment for patient to see her TAKE OFF WORKER Carmen at the [facility] on August 29 @ 11:30 a.m. Made appointment for patient to see her oral surgeon (Dental Oral Surgery) for a follow up visit on August 30 @ 10:00 a.m. If BP more stable in a.m., can be discharged tomorrow. Vital Signs Period Temp Pulse Resp BP Sys/Wilcox Pulse Ox Last 24 Hr 98.2 F-98.9 F 67-70 18-18 131-177/70-107 100-100 GENERAL: Awake, alert, and fully oriented, in no acute distress. HEAD: +Left maxillary swelling +pain, pain not yet controlled but she is able to open her mouth wider today on exam EYES: Pupils equal, round and reactive to light, extraocular movements intact, sclera anicteric, conjunctiva clear. No lid lag. EARS, NOSE, THROAT: Ears normal, nares patent, oropharynx clear without exudates. Moist mucous membranes. NECK: Normal range of motion, supple without lymphadenopathy, JVD, or masses. LUNGS: Breath sounds equal, No accessory muscle use. HEART: Regular rate and rhythm, normal S1 and S2 without murmur, rub or gallop. ABDOMEN: Soft, nontender, not distended, normoactive bowel sounds, no guarding, no rebound, no masses. No hepatomegaly or splenomegaly. MUSCULOSKELETAL: Normal range of motion at all joints. No bony deformities or tenderness. No CVA tenderness. UPPER EXTREMITIES: 2+ pulses, warm, well-perfused. No cyanosis. No clubbing. No peripheral edema. LOWER EXTREMITIES: 2+ pulses, warm, well-perfused. No calf tenderness. No peripheral edema. NEUROLOGICAL: Cranial nerves II-XII intact. Normal speech. Normal gait. PSYCHIATRIC: cooperative with good eye contact. SKIN: Warm, dry, normal turgor, no rashes or lesions noted, normal capillary refill. Active Medications Generic Name Dose Route Start Last Admin Trade Name Freq PRN Reason Stop Dose Admin Amlodipine Besylate 10 mg 08/24/16 10:00 08/26/16 09:25 Norvasc - PO 10 mg DAILY WILY Administration Aripiprazole 5 mg 08/24/16 07:00 08/26/16 06:02 Abilify PO Not Given [facility] Carvedilol 12.5 mg 08/26/16 12:42 Coreg - PO BID WILY Dapsone 100 mg 08/24/16 10:00 08/26/16 10:09 Dapsone - PO Not Given DAILY WILY Emtricitabine/Rilpivirine/Tenofovir 1 each 08/24/16 10:00 08/26/16 09:27 Complera - PO 1 each DAILY WILY Administration Clindamycin Phosphate 50 mls @ 100 mls/hr 08/24/16 02:00 08/26/16 09:24 Cleocin 600 Mg Premix Ivpb - IVPB 100 mls/hr Q8H-IV WILY Administration Ketorolac Tromethamine 20 mg 08/26/16 13:04 Toradol PO 08/31/16 13:03 Q4HPO PRN PAIN Lamotrigine 25 mg 08/23/16 22:00 08/25/16 22:15 Lamictal - PO Not Given HS WILY Lisinopril 10 mg 08/25/16 10:00 08/26/16 09:25 Prinivil PO 10 mg DAILY WILY Administration Methadone HCl 40 mg/ Methadone 60 mg 08/24/16 10:00 08/26/16 09:25 HCl 20 mg PO 60 mg DAILY WILY Administration Ondansetron HCl 8 mg 08/24/16 19:00 08/26/16 06:02 Zofran - PO Not Given Q12H WILY ASSESSMENT/PLAN: Patient is a 36 year old female with a significant past medical history of NHL ( non hodgkins lymphoma) s/p chemo, PE, hypertension, +HIV on antivirals, ADHD, bipolar disorder and polysubstance abuse. She presented to the ER on 08/23/2016 with left sided facial pain after an inferior wisdom tooth extraction on 2016 and was on PO Amoxicillin. A few days ago her cheeks became swollen, painful to touch and difficulty for her to open her mouth. She also complains of a left sided headache on admission. She was having severe pain at home and took a large amount of Acetaminophen and Motrin. As per ER notes, see was taking a "total over 24 hr: tylenol 300x30 pills+ tylenol 325x20 pills. She denies chest pain, shortness of breath, abdominal pain, nausea, vomiting, diarrhea, constipation. While in the ER her blood pressure became severely elevated 203/100s, and her Metoprolol was increased. Cardiology was asked to evaluate. Imagin08/23/2016: CT Soft tissue of left neck with contrast - normal scan no evidence of manidibular pathology, neck mass or fluid collection. 08/22/2016: EKG: NSR voltage criteria for left ventricular hypertrophy when compared w/EKG of 01/2016 t wave variation ID: Left Mandible Tissue infection s/p wisdom tooth extraction - improving Assessment/Plan: On Clindamycin 300mg q8 x 1 week, also on Dapsone CT shows no evidence of mandibular pathology, neck mass or fluid collection She is able to open her mouth better today, still having pain Toradol PO q4 Continue on soft diet Saline gargles q 4 ID consulted and following HIV + Assessment/Plan: As per [facility] records HIV/AIDS on 07/2016 VL <20, CD4 >239 while on Complera Followed by ID at the [facility] Cardiology: Hypertensive Urgency - improving with uptitration of medications Assessment/Plan: BP elevated >200/100s in ER Lisinopril 10mg started, on Amlodopine 10mg daily, Coreq 12.5 mg BID titrated up by cardiology Cardiology referral with Dr. Lezama as an outpatient Hematology/Oncology: NHL with history of PE Assessment/Plan: On home dose of Lovenox 120mg BID to continue Follow up with outpatient clinic on d/c F.E.N. Fluids: Tolerating PO Electrolytes: monitor with BMP Nutrition: soft diet Prophylaxis: Ambulation, Lovenox 120mg BID-home dose GI: Protonix Disposition: Full Code. Visit type - Emergency Visit Emergency Visit: Yes ED Registration Date: 08/23/16 Care time: The patient presented to the Emergency Department on the above date and was hospitalized for further evaluation of their emergent condition. - New Patient This patient is new to me today: No - Critical Care Critical Care patient: No - Discharge Referral Referred to [facility] Med P.C.: No
[2016-08-26] MEDS ORDERED: KETOROLAC TROMETHAMINE 10 MG TABLET PO ONE (15:46)
[2016-08-26] MEDS ORDERED: KETOROLAC TROMETHAMINE 10 MG TABLET PO SCH (16:29)
[2016-08-26] MEDS: ENOXAPARIN NA (PORCINE) 120 MG/0.8 ML DISP.SYRIN SQ SCH (16:50)
[2016-08-26] MEDS: CLINDAMYCIN HCL 150 MG CAPSULE (FP) PO SCH (22:18)
[2016-08-26] MEDS: lamoTRIgine 25 MG TABLET PO SCH (22:19)
[2016-08-26] MEDS: ACETAMINOPHEN 325 MG TABLET (FP) PO PRN (22:38)
[2016-08-27] MEDS: CLINDAMYCIN HCL 150 MG CAPSULE (FP) PO SCH ×2 (05:42→13:10)
[2016-08-27] MEDS: ENOXAPARIN NA (PORCINE) 120 MG/0.8 ML DISP.SYRIN SQ SCH (05:42)
[2016-08-27] MEDS: ARIPiprazole 5 MG TABLET (FP) PO SCH (06:13)
[2016-08-27] MEDS: ONDANSETRON 4 MG TABLET PO SCH (06:13)
[2016-08-27] MEDS ORDERED: METHADONE HCL 40 MG DISPERSABLE TABLET ONE (09:02)
[2016-08-27] MEDS ORDERED: METHADONE HCL 10 MG TABLET ONE (09:02)
[2016-08-27] MEDS: amLODIPine BESYLATE 10 MG TABLET (FP) PO SCH (09:06)
[2016-08-27] MEDS: METHADONE 40 MG, METHADONE 20 MG PO SCH (09:06)
[2016-08-27] MEDS: CARVEDILOL 6.25 MG TABLET (FP) PO SCH (09:06)
[2016-08-27] MEDS: ACETAMINOPHEN 325 MG TABLET (FP) PO PRN (09:06)
[2016-08-27] MEDS: LISINOPRIL 10 MG TABLET (FP) PO SCH (09:06)
[2016-08-27] MEDS: EMTRICITAB/RILPIVIRINE/TENOFOV 1 EACH TABLET PO SCH (09:08)
[2016-08-27] MEDS: KETOROLAC TROMETHAMINE 10 MG TABLET PO PRN (09:08)
[2016-08-27] MEDS: DAPSONE 100 MG TABLET PO SCH (09:08)
[2016-08-27 11:54] VITALS: BP 143/101; PULSE 75; TEMP 99.4
--- NOTE | 2016-08-27 12:09 | DS ---
Physical Exam: SUBJECTIVE: Patient seen and examined. She says her L cheek still feels swollen , but pain is tolerable she is eager to go home OBJECTIVE: Vital Signs Period Temp Pulse Resp BP Sys/Wilcox Pulse Ox Last 24 Hr 98.3 F-99.4 F 64-75 18-20 143-167/85-109 100-100 PE Neuro: alert, awake, cn 2-12 intact Pulm: CTAB CV: s1 s2 rrr no mrg Abd: s nt nd + bs Ext: warm,no le edema Skin: healed port incision RCW, diffuse bilateral lower leg, arm, and chest scars HOSPITAL COURSE: Date of Admission:08/23/16 Date of Discharge: 08/27/16 Minutes to complete discharge: 37 Discharge Summary Reason For Visit: ABSCESS OF MANDIBLE; ACETAMINOPH OVERDOSE Current Active Problems Hypertensive urgency (Acute) Mandibular abscess (Acute) Pain, dental (Acute) Tylenol overdose (Acute) Hospital Course: Initial Hospital Course: Briefly, 36 year old female with PMH of Non Hodgkin lymphoma (last chemo 3 mo ago, has port, had a brain biopsy), HIV, HTN, opioid dependence (heroine, crack , cocaine, meth, last use 5 years ago) on methadone, gastritis, ADHD and bipolar disorder, presented with Left facial pain. She had a left inferior wisdom tooth extracted 08/16/16 and has been on PO abx. A few days ago her left cheek became swollen, very painful, causing shooting pains in her face, neck and head. She c/o a left sided IVY Of note: Due to severe pain, pt reported taking a whole bottle of prescribed Tylenol plus her friends and ibprofen. 15g of tylenol over the last 24h. ED labs: normal ast/alt/INR with apap level 25.6 - 21hr NAC protocol initiated, d/w CDC at that time Imagin/17: CT Soft tissue of left neck with contrast - normal scan no evidence of manidibular pathology, neck mass or fluid collection. Subsequent Hosptial Course/Progress Note/Discharge Summary by P: Plan: 1. Accidental Tylenol OD - Complete NAC protocol - Repeat acetaminophen level less <2.000 - Pain tolerable with torodol 2. Left Mandible Tissue infection s/p wisdom tooth extraction - CT negative for acute mass or fluid collection - Home with clindamycin 300mg q8 x7 days - Follow up appt with dental oral surgery 08/30 at 10am, pt aware 3. HIV - 07/2016 VL <20, CD4 >239 - Continue Complera - Follow up with [facility] 08/29 11:30 am 4. HTN, with hypertensive urgency - Coreg increased 12.5mg BID - Started on lisinopril 10mg daily - Contiue norvasc 10mg daily 5. hx of PE d/t NH lymphoma - Lovenox 120mg BID ' 6. Substance abuse - Methadone 60mg daily Dispo: - Home with above meds and follow up - Pt substance abuse history, discussed staggering OTC analgesic regimen, tylenol and ibuprofen as needed for pain. pt conveys understanding - To continue abx and BP meds Condition: Stable - Instructions Diet, Activity, Other Instructions: Please return to the ED for any new, persistent, or worsening symptoms. Keep following appts: [facility] August 29 @ 11:30 a.m. with CarmenDEBT COLLECTOR to follow up your blood pressure and repeat blood work. Dental Oral Surgery follow up: 08/30 @10am Continue antibiotics as directed and until completed Take new blood pressure medication as prescribed and follow up BP readings with [facility] For pain: Take Tylenol every 6 hours and ibuprofen every 6 hours, first begin with Tylenol and then take ibuprofen 600mg 3 hours later. Only take as needed for pain Drink plenty of water while on pain meds and antibiotics Disposition: HOME - Home Medications Comprehensive Discharge Medication List: Ambulatory Orders Amlodipine Besylate 10 mg PO DAILY #30 tablet 07/28/15 Methadone [Dolophine -] 60 mg PO DAILY 08/23/15 Ibuprofen [Motrin -] 600 mg PO QID PRN #28 tablet 02/02/16 Ondansetron HCl [Zofran] 8 mg PO Q12H #4 tablet MDD 2 02/02/16 Emtricitab/Rilpivirine/Tenofov [Complera Tablet -] 1 each PO DAILY #30 tablet Enoxaparin [Lovenox -] 120 mg SQ BID #60 disp.syrin 07/16/16 Acetaminophen [Tylenol -] 500 mg PO Q6H #100 tablet 08/27/16 Carvedilol [Coreg -] 12.5 mg PO BID #60 tablet 08/27/16 Clindamycin [Cleocin -] 300 mg PO TID #21 capsule 08/27/16 This patient is new to me today: Yes Date on this admission: 08/28/16 Emergency Visit: Yes ED Registration Date: 08/23/16 Care time: The patient presented to the Emergency Department on the above date and was hospitalized for further evaluation of their emergent condition. Critical Care patient: No - Discharge Referral Referred to [facility] Med P.C.: No
== END 2016-08-27 13:40 | disposition home or self-care (01) | DRG 114 ==
LOC: JERFT 10:58 → JER 10:58 → JERBED 17:24 → J8W 08-24 12:20
PROVIDERS: ADMIT Internal Medicine; ATTEND Nurse Practitioner Acute Care
DX: K08.89 Other specified disorders of teeth and supporting structures (principal); B20 Human immunodeficiency virus [HIV] disease; C85.90 Non-Hodgkin lymphoma, unspecified, unspecified site; F11.20 Opioid dependence, uncomplicated; Z68.41 Body mass index [BMI] 40.0-44.9, adult; T39.1X1A Poisoning by 4-Aminophenol derivatives, accidental (unintentional), initial encounter; I10 Essential (primary) hypertension; I16.0 Hypertensive urgency; K29.60 Other gastritis without bleeding; F31.9 Bipolar disorder, unspecified; M27.2 Inflammatory conditions of jaws; F17.210 Nicotine dependence, cigarettes, uncomplicated; E66.9 Obesity, unspecified; F90.1 Attention-deficit hyperactivity disorder, predominantly hyperactive type; Y92.098 Other place in other non-institutional residence as the place of occurrence of the external cause
CPT/HCPCS: 36415; 70491-TC; 80053; 80307; 82248; 83036; 83605; 83690; 84703; 85025; 85610; 85651; 85730; 86140; 87040; 93005; 93010; 99285-25; 99401-25; G0463-25

== ENCOUNTER 2016-10-16 15:06 | Emergency (ER) | payer OTHER ==
[2016-10-16 15:35] VITALS: BMI 43.2
--- NOTE | 2016-10-16 15:58 | PDOC ---
History of Present Illness - General Chief Complaint: Pain Stated Complaint: PAIN Time Seen by Provider: 10/16/16 15:43 - History of Present Illness Initial Comments: 10/16/16 16:13 Ms. Aguilera is a 36 year old female with a significant past medical history of HIV, opioid abuse, and HTN who presents to the emergency department after she began vomiting with diarrhea this morning. She says that at this same time she began having intense stomach pain over her entire abdomen. She reports that her vomit was yellow liquid and that her stool was loose without any change in color. She also reports recent chills. The patient denies chest pain, shortness of breath, headache and dizziness. Denies fever, nausea, and constipation. Denies dysuria, frequency, urgency and hematuria. Allergies: bactrim, rocephin, peanuts Past surgical history: brain biopsy for non-hodgkins lymphoma Social history: Reports smoking 1/2 ppd for the last 10-15 years. denies alcohol or illicit drug use. 10/16/16 16:16 Past History - Past Medical History Allergies/Adverse Reactions: Allergies Allergy/AdvReac Type Severity Reaction Status Date / Time peanut [Peanut] Allergy Hives Verified 10/16/16 15:35 ceftriaxone sodium AdvReac Hives Verified 10/16/16 15:35 [From Rocephin] sulfamethoxazole AdvReac Hives Verified 10/16/16 15:35 [From Bactrim] trimethoprim [From Bactrim] AdvReac Hives Verified 10/16/16 15:35 Home Medications: Ambulatory Orders Methadone [Dolophine -] 60 mg PO DAILY 08/23/15 Enoxaparin [Lovenox -] 120 mg SQ BID #60 disp.syrin 07/16/16 Amlodipine Besylate [Norvasc -] 10 mg PO DAILY #30 tablet 08/29/16 Docusate Sodium [Colace -] 100 mg PO TID PRN #90 capsule 08/29/16 Emtricitab/Rilpivirine/Tenofov [Complera Tablet -] 1 each PO DAILY #30 tablet Carvedilol [Coreg -] 12.5 mg PO BID #60 tablet 09/19/16 Lisinopril [Prinivil] 10 mg PO DAILY #30 tablet 09/19/16 Ondansetron HCl [Zofran] 8 mg PO Q12H #6 tablet MDD 2 09/19/16 Aripiprazole [Abilify] 5 mg PO AM #30 tablet 09/29/16 Anemia: No Asthma: No Cancer: Yes (NON-HODGKINS LYMPHOMA,LAST CHEMO 3 M AGO) Cardiac Disorders: No CVA: No COPD: No CHF: No Dementia: No Diabetes: No GI Disorders: No Disorders: No HTN: Yes Hypercholesterolemia: No HIV: Yes Kidney Stones: No Liver Disease: No Psychiatric Problems: Yes (depression, anxiety bipolor) Suicide Attempt (Hx): No Seizures: No Thyroid Disease: No - Surgical History Abdominal Surgery: No Appendectomy: No Cardiac Surgery: No Cholecystectomy: No Lung Surgery: No Neurologic Surgery: Yes (Brain Biopsy September 2015,) - Reproductive History PID: No - Immunization History Immunization Up to Date: Yes - Psycho/Social/Smoking Cessation Hx Anxiety: Yes Suicidal Ideation: No Smoking Status: Yes Smoking History: Current every day smoker Have you smoked in the past 12 months: Yes Number of Cigarettes Smoked Daily: 20 Cigars Per Day: 20 Information on smoking cessation initiated: No 'Breaking Loose' booklet given: 08/24/16 Hx Alcohol Use: No Drug/Substance Use Hx: No Substance Use Type: None Hx Substance Use Treatment: Yes Review of Systems - Review of Systems Comments:: 10/16/16 16:13 GENERAL/CONSTITUTIONAL: +Endorses chills. No fever, no weakness. HEAD, EYES, EARS, NOSE AND THROAT: No change in vision. No ear pain or discharge. No sore throat. CARDIOVASCULAR: No chest pain or shortness of breath RESPIRATORY: No cough, wheezing, or hemoptysis. GASTROINTESTINAL: +Endorses nausea, vomiting, and diarrhea. No constipation. GENITOURINARY: No dysuria, frequency, or change in urination. MUSCULOSKELETAL: No joint or muscle swelling or pain. No neck or back pain. SKIN: No rash NEUROLOGIC: No headache, vertigo, loss of consciousness, or change in strength/ sensation. ENDOCRINE: No increased thirst. No abnormal weight change HEMATOLOGIC/LYMPHATIC: No anemia, easy bleeding, or history of blood clots. ALLERGIC/IMMUNOLOGIC: No hives or skin allergy. *Physical Exam - Vital Signs Last Vital Signs Temp Pulse Resp BP Pulse Ox 98.7 F 82 18 166/110 100 10/16/16 15:22 10/16/16 15:22 10/16/16 15:22 10/16/16 15:39 10/16/16 15:22 - Physical Exam Comments: 10/16/16 16:13 GENERAL: +Visibly uncomfortable. Somnolent but arouses to voice. HEAD: No signs of trauma, normocephalic, atraumatic EYES: PERRLA, EOMI, sclera anicteric, conjunctiva clear ENT: Auricles normal inspection, hearing grossly normal, nares patent, oropharynx clear without exudates. Moist mucosa NECK: Normal ROM, supple, no lymphadenopathy, JVD, or masses LUNGS: No distress, speaks full sentences, clear to auscultation bilaterally HEART: Regular rate and rhythm, normal S1 and S2, no murmurs, rubs or gallops, peripheral pulses normal and equal bilaterally. ABDOMEN: Diffusely tender. Soft, normoactive bowel sounds. No guarding, no rebound. No masses EXTREMITIES: Normal inspection, Normal range of motion, no edema. No clubbing or cyanosis. NEUROLOGICAL: Cranial nerves II through XII grossly intact. Normal speech, normal gait, no focal sensorimotor deficits SKIN: Warm, Dry, normal turgor, no rashes or lesions noted. ED Treatment Course - LABORATORY CBC & Chemistry Diagram: 10/16/16 16:10 10/16/16 17:00 Medical Decision Making - Medical Decision Making 10/16/16 19:32 Ms. Aguilera reported vomiting and diarrhea this AM with immediate stomach pain and somnolence. Given Zofran for nausea. Got labs for cmp/cbc/tylenol/ salicylates/utox as well as head CT - all negative. Patient sleeping in bed. Will d/c to home with instructions to f/u with pcp outpatient. *DC/Admit/Observation/Transfer Diagnosis at time of Disposition: Nausea & vomiting Qualifiers: Vomiting type: unspecified Vomiting Intractability: non-intractable Qualified Code(s): R11.2 - Nausea with vomiting, unspecified Diarrhea Qualifiers: Diarrhea type: unspecified type Qualified Code(s): R19.7 - Diarrhea, unspecified - Discharge Dispostion Disposition: HOME - Patient Instructions Printed Discharge Instructions: DI for Nausea -- Adult, DI for Diarrhea and Traveler's Diarrhea -- Adult Additional Instructions: Please represent to ER if return of nausea, vomiting, or other concerning symptoms. - Attestations Physician Attestion: 10/16/16 19:36 I, Dr. Jermaine Cronin, attest that this document has been prepared under my direction and personally reviewed by me in its entirety. I further attest, that it accurately reflects all work, treatment, procedures and medical decision -making performed by me.
[2016-10-16] MEDS ORDERED: FAMOTIDINE 20 MG/50 ML IVPB 50 ML IVPB ONE ×2 (16:02→16:32)
[2016-10-16] MEDS ORDERED: MAG HYDROX/AL HYDROX/SIMETH 30 ML UNIT-DOSE CUP PO ONE (16:02)
[2016-10-16] MEDS ORDERED: SODIUM CHLORIDE 1,000 ML IV STA (16:04)
[2016-10-16] MEDS ORDERED: ONDANSETRON 4 MG/2 ML VIAL IVPUSH ONE (16:04)
[2016-10-16] MEDS ORDERED: ONDANSETRON 4 MG/2 ML VIAL ONE (16:32)
[2016-10-16 16:33] LABS: EOSINOPHIL 0.2 % (0-4.5); MCH 28.6 pg (25.7-33.7); MCHC 32.7 g/dl (32.0-36.0); MEAN CELL VOLUME 87.5 fl (80-96); MEAN PLT VOLUME 10.8 fl (7.5-11.1); NEUTROPHILS 84.5 % (42.8-82.8); PLATELET COUNT 271 K/MM3 (134-434); RDW 18.5 % (11.6-15.6); WHITE BLOOD COUNT 8.6 K/mm3 (4.0-10.0)
--- NOTE | 2016-10-16 16:46 | PDOC ---
Attending Attestation - Resident Resident Name: Jermaine Cronin - ED Attending Attestation I have performed the following: I have examined & evaluated the patient, The case was reviewed & discussed with the resident, I agree w/resident's findings & plan, Exceptions are as noted - HPI HPI: 10/16/16 16:39 "The patient is a 36 year old female, with a significant past medical history of non hodgkin lymphoma, HIV, HTN, opioid dependence, ADHD, bipolar disorder, who presents to the emergency department with abdominal pain, nausea, and vomiting. The patient reports being seen a [facility] earlier today with similar complaints, but states they did nothing for her and discharged her. Pt is poorly able to localize pain, stating that her abdomen hurts "everywhere". Pt states that she has had multiple similar episodes in the past. Does not know of any exacerbating or alleviating factors. Denies any surgical history. She denies recent fevers, chills, headache or dizziness. She denies recent constipation. She denies recent dysuria, frequency, urgency or hematuria. Per chart review, pt has had multiple CT scans of her abdomen and pelvis that have not shown any acute abdominal pathology. Allergies: NKA Past surgical history: Brain biopsy Social history: See HPI. Current everyday smoker. Primary Care Physician: " - Physicial Exam PE: 10/16/16 16:46 "GENERAL: Awake, alert, and fully oriented, in no acute distress HEAD: No signs of trauma EYES: PERRLA, EOMI, sclera anicteric, conjunctiva clear ENT: Auricles normal inspection, hearing grossly normal, nares patent, oropharynx clear without exudates. Moist mucosa NECK: Normal ROM, supple, no lymphadenopathy, JVD, or masses LUNGS: Breath sounds equal, clear to auscultation bilaterally. No wheezes, and no crackles HEART: Regular rate and rhythm, normal S1 and S2, no murmurs, rubs or gallops ABDOMEN: Soft, diffuse tenderness most prominent in epigastric region EXTREMITIES: Normal range of motion, no edema. No clubbing or cyanosis. No cords, erythema, or tenderness NEUROLOGICAL: Cranial nerves II through XII grossly intact. Normal speech, normal gait SKIN: Warm, Dry, normal turgor, no rashes or lesions noted. " - Medical Decision Making 10/16/16 16:49 36 F with HIV, NHL, opiate dependence, presenting to ER with abdominal pain, N/ V x 1 day. Pt reports diffuse abdominal pain, though she is sleeping comfortably in the ER throughout her stay without any episodes of vomiting or diarrhea. Vitals stable. Abdominal exam most tender in epigastric region. Likely viral gastroenteritis. Low suspicion for acute pathology given multiple normal CT abd/pelvis in the past. Will consider CT if pt does not improve with GI cocktail. Also consider intracranial process as etiology of pt's nausea and vomiting, as pt has h/o brain masses. - Labs, lactate, UPT, UA - CT head - IVF, zofran, maalox, pepcid - Reassess - Consider CT
[2016-10-16 17:43] LABS: URINE MARIJUANA THC POSITIVE ng/ml (CUTOFF=50)
[2016-10-16] MEDS ORDERED: MAG HYDROX/AL HYDROX/SIMETH 30 ML UNIT-DOSE CUP ONE (17:45)
[2016-10-16 17:52] LABS: ALBUMIN 4.3 g/dl (3.4-5.0); ANION GAP 7 (8-16); BILIRUBIN,TOTAL 0.4 mg/dL (0.2-1.0); CALCIUM 9.9 mg/dL (8.5-10.1); CO2 25 mmol/L (21-32); CREATININE 0.9 mg/dL (0.55-1.02); GLUCOSE,RANDOM 136 mg/dL (74-106); SALICYLATE 4.179 mg/dl (0.0-30.0); SGOT/AST 26 U/L (15-37); SGPT/ALT 41 U/L (12-78); TOT PROT 8.1 g/dl (6.4-8.2)
[2016-10-16 17:53] LABS: ALK PHOS 155 U/L (45-117)
[2016-10-16 19:52] VITALS: BP 165/113; PULSE 87
[2016-10-16] MEDS ORDERED: amLODIPine BESYLATE 10 MG TABLET (FP) PO ONE (19:58)
[2016-10-16] MEDS ORDERED: amLODIPine BESYLATE 5 MG TABLET (FP) ONE (19:59)
[2016-10-16] MEDS ORDERED: LISINOPRIL 10 MG TABLET (FP) PO ONE (20:00)
[2016-10-16] MEDS ORDERED: CARVEDILOL 12.5 MG TABLET (FP) PO ONE (20:00)
[2016-10-16] MEDS ORDERED: LISINOPRIL 5 MG TABLET (FP) ONE (20:00)
[2016-10-16] MEDS ORDERED: CARVEDILOL 12.5 MG TABLET (FP) ONE (20:00)
[2016-10-16] MEDS ORDERED: ACETAMINOPHEN 325 MG TABLET (FP) PO ONE (20:14)
[2016-10-16] MEDS ORDERED: ACETAMINOPHEN 325 MG TABLET (FP) ONE (20:19)
[2016-10-16 20:22] VITALS: TEMP 99.1
--- NOTE | 2016-10-17 12:21 | PN ---
Progress Note - HPI Chief Complaint: f/u after ER visit x 2 History of Present Illness: 36 y.o. female with HIV, CD4 263, VL 50, reports 100% adherence to Complera. -pt reports she woke up yesterday at 7am - felt nauseated, ran to the bathroom, started vomiting yellow bile; returned to her bed, then felt like she needed to vomit again; pt had friend request EMS and pt vomited entire way until got to [facility]. Vomited all day; had diffuse abd pain; notes she also diarrhea and weakness in her lower legs; was discharged from [facility] but did not feels well and took a cab from [facility] to [facility]. Pt received iv fluids , zofran, maalox, and pepcid. also had a head ct which was negative for any lesions. 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 Has a f /u with her oncologist - Dr. Larose at [facility] - on 10/25/16. Exam Limitations: No Limitations - Disease Managment-HIV HIV Status: Positive HIV Risk Factors: Heterosexual Staging: Asx Viral Load: 20 Rosales CD4, Peak VL: 114,950 History: Yes: Other (non-hodgkins lymphoma of the brain) If CD4 <200 is patient on PCP Prophylaxis: Yes (Pt refuses dapsone or bactrim) If CD4<50 is patient on MAC Prophylaxis: No - Medication Adherence A. Number of Doses in 3 Days: 3 B. Missed Doses in the last 3 days: 0 Adherence % = (A-B)/A x 100 equals: 100% - ROS Constitutional: Yes: Other (trying to lose wt b/c was told she has diabetes or is borderline). No: Chills, Fever, Night Sweats Respiratory: No: Cough, Shortness of Breath Cardiac: No: Chest Pain, Palpitations GI: Yes: See HPI, Nausea, Abdominal Pain (still has some stomach discomfort - feels like it is the residuals of vomiting). No: Vomiting (last episode prior to leaving hospital last night), blood in Stool, Constipation, Diarrhea : No: Burning, Frequency, Urgency Musculoskeletal: No: Back Pain - Medications Home Medications: Ambulatory Orders Methadone [Dolophine -] 60 mg PO DAILY 08/23/15 Enoxaparin [Lovenox -] 120 mg SQ BID #60 disp.syrin 07/16/16 Amlodipine Besylate [Norvasc -] 10 mg PO DAILY #30 tablet 08/29/16 Docusate Sodium [Colace -] 100 mg PO TID PRN #90 capsule 08/29/16 Emtricitab/Rilpivirine/Tenofov [Complera Tablet -] 1 each PO DAILY #30 tablet Carvedilol [Coreg -] 12.5 mg PO BID #60 tablet 09/19/16 Lisinopril [Prinivil] 10 mg PO DAILY #30 tablet 09/19/16 Ondansetron HCl [Zofran] 8 mg PO Q12H #6 tablet MDD 2 09/19/16 Aripiprazole [Abilify] 5 mg PO AM #30 tablet 09/29/16 Social - Smoking Smoking history: Current every day smoker - Past Substance Use/Tx. Hx Date of Assessment: 09/29/16 Hx Alcohol Use: No Hx Substance Use: No Hx Substance Use Treatment: Yes Tobacco Cessation - Referrals Referrals: Parris Rivera MD [Primary Care Provider] - Physical Exam - Vital Signs Vital Signs: Vital Signs - 24 hr LMP:: 09/28/16 - Physical General Appearance: Yes: No Apparent Distress, Nourished, Appropriately Dressed Neurological: Yes: Fully Oriented, Alert Assessment and Plan-Medical - Diagnosis (1) Acquired immune deficiency syndrome (AIDS) Status: Chronic Code(s): B20 - HUMAN IMMUNODEFICIENCY VIRUS [HIV] DISEASE Comment: continue Kaletra, Isentress, Ziagen - discussed adherence, benefits/ goals of tx, risks a/w nonadherence, resistance, disease progression, limiting treatment options, importance of f/u and monitoring, safe sex, condom use, partner notification and testing, availability of PEP and PrEP for HIV neg partner (2) Hypertension Status: Chronic Code(s): I10 - ESSENTIAL (PRIMARY) HYPERTENSION Comment: now on amlodipine 10mg, lisinopril 10mg, and coreg 12.5 mg bid discussed adherence to meds, low salt diet, importance of bp control, importance of f/u and monitoring continue f/u with cardio - appt 10/07/16 (3) Tobacco use Status: Chronic Code(s): Z72.0 - TOBACCO USE Comment: smoking cessation discussed; reports trying patch and gum in past; wants to try 'vaping' again, encouraged cessation - Health Maintenance Last Date of Influenza Vaccine: 12/25/13 - Orders Lab Test: cd4, hiv vl, cmp, cbc Referrals: ob gyn, f/u cardio Next Appointment: 1 mo or PRN
== END 2016-10-16 20:31 | disposition home or self-care (01) ==
LOC: JER 15:06
PROC: 3E033GC Introduction of Other Therapeutic Substance into Peripheral Vein, Percutaneous Approach (ICD-10-PCS; principal; 2016-10-16)
PROC: 3E0337Z Introduction of Electrolytic and Water Balance Substance into Peripheral Vein, Percutaneous Approach (ICD-10-PCS; 2016-10-16)
DX: R19.7 Diarrhea, unspecified (principal); R11.2 Nausea with vomiting, unspecified; Z21 Asymptomatic human immunodeficiency virus [HIV] infection status; I10 Essential (primary) hypertension; F11.90 Opioid use, unspecified, uncomplicated; F17.210 Nicotine dependence, cigarettes, uncomplicated; C85.90 Non-Hodgkin lymphoma, unspecified, unspecified site; F41.8 Other specified anxiety disorders; F31.9 Bipolar disorder, unspecified
CPT/HCPCS: 36415; 70450-TC; 80053; 80307; 83605; 83690; 84703; 85025; 96361; 96365; 99283-25

== ENCOUNTER 2018-10-29 08:12 | Inpatient (IN) | payer OTHER ==
[2018-10-29 09:13] VITALS: BMI 32.9
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
[2018-10-29] MEDS ORDERED: ACETAMINOPHEN 325 MG TABLET (FP) PO PRN (10:49)
[2018-10-29] MEDS ORDERED: LOPERAMIDE HCL 2 MG CAPSULE PO PRN (10:49)
[2018-10-29] MEDS ORDERED: MAGNESIUM CITRATE 300 ML BOTTLE PO PRN (10:49)
[2018-10-29] MEDS ORDERED: MAGNESIUM HYDROX 2400MG/30ML ORAL SUSPENSION 30 ML CUP PO PRN (10:49)
[2018-10-29] MEDS ORDERED: MENTHOL/PHENOL 1 EACH UD MM PRN (10:49)
[2018-10-29] MEDS ORDERED: IBUPROFEN 400 MG TABLET (FP) PO PRN (10:49)
[2018-10-29] MEDS ORDERED: MAG HYDROX/AL HYDROX/SIMETH 30 ML UNIT-DOSE CUP PO PRN (10:49)
[2018-10-29] MEDS ORDERED: guaiFENesin 200 MG/10 ML 10 ML UNIT-DOSE CUPS PO PRN (10:49)
[2018-10-29] MEDS ORDERED: P-EPHED 60MG/TRIPROLIDI 2.5MG TABLET PO PRN (10:49)
[2018-10-29] MEDS ORDERED: ALBUTEROL SO4 8 GM HFA INHALER IH PRN (10:51)
[2018-10-29] MEDS ORDERED: ALBUTEROL SO4 0.083% IH SOL 2.5 MG/3 ML VIAL.NEB. NEB PRN (10:51)
[2018-10-29] MEDS: TRIAMCINOLONE ACET 0.1% CREAM 15 GM TUBE TP SCH ×2 (12:00→21:24)
[2018-10-29] MEDS: FLUTICASONE PROP 0.05% 16 GM NASAL SPRAY NS SCH (12:30)
[2018-10-29] MEDS: amLODIPine BESYLATE 10 MG TABLET (FP) PO SCH (13:12)
[2018-10-29] MEDS: BUPRENORPHINE/NALOXONE 8 MG/2 MG FILM PACKET SL SCH (13:12)
[2018-10-29] MEDS: LISINOPRIL 10 MG TABLET (FP) PO SCH (13:12)
[2018-10-29 15:36] LABS: HEMATOCRIT 33.7 % (32.4-45.2); HEMOGLOBIN 11.3 GM/dL (10.7-15.3); MCH 30.3 pg (25.7-33.7); MCHC 33.5 g/dl (32.0-36.0); MEAN CELL VOLUME 90.4 fl (80-96); PLATELET COUNT 191 K/MM3 (134-434); RBC 3.73 M/mm3 (3.60-5.2); RDW 14.6 % (11.6-15.6); WHITE BLOOD COUNT 2.4 K/mm3 (4.0-10.0)
[2018-10-29 15:42] LABS: ALBUMIN 3.8 g/dl (3.4-5.0); BILIRUBIN,TOTAL 0.3 mg/dL (0.2-1); BLOOD UREA NITROGEN 15.5 mg/dL (7-18); CALCIUM 8.9 mg/dL (8.5-10.1); POTASSIUM 3.7 mmol/L (3.5-5.1); TOT PROT 7.4 g/dl (6.4-8.2)
[2018-10-29 20:46] LABS: EPI CELLS 23.6 /HPF (0-5/HPF); HYALINE CASTS 12 /lpf (0-8); PH,URINE 5.5 (5.0-8.0); URINE APPEARANCE TURBID; URINE BACTERIA 229.8 /hpf (NEGATIVE); URINE BILIRUBIN NEGATIVE (NEGATIVE); URINE COLOR YELLOW; URINE GLUCOSE (UA) NEGATIVE (NEGATIVE); URINE KETONE TRACE (NEGATIVE); URINE LEUK ESTERASE NEGATIVE (NEGATIVE); URINE NITRITE NEGATIVE (NEGATIVE); URINE PROTEIN 1+ (NEGATIVE); URINE RBC 1 /hpf (0-4); URINE WBC 6 /hpf (0-5)
[2018-10-29] MEDS: THIAMINE HCL 100 MG TABLET (FP) PO SCH (21:23)
[2018-10-29] MEDS: CARVEDILOL 12.5 MG TABLET (FP) PO SCH (21:24)
[2018-10-29] MEDS ORDERED: PT OWN MED DRAWER 7, Y5N ONE (21:24)
[2018-10-29 23:32] LABS: URINE CRYSTALS AMORPHOUS URATES /hpf
[2018-10-30] MEDS: PRENATAL VITAMINS W/ FOLIC ACID TABLET (FP) PO SCH (10:13)
[2018-10-30] MEDS: CARVEDILOL 12.5 MG TABLET (FP) PO SCH ×2 (10:13→21:35)
[2018-10-30] MEDS: BUPRENORPHINE/NALOXONE 8 MG/2 MG FILM PACKET SL SCH (10:13)
[2018-10-30] MEDS: amLODIPine BESYLATE 10 MG TABLET (FP) PO SCH (10:13)
[2018-10-30] MEDS: LISINOPRIL 10 MG TABLET (FP) PO SCH (10:13)
[2018-10-30] MEDS: TRIAMCINOLONE ACET 0.1% CREAM 15 GM TUBE TP SCH ×2 (10:14→21:35)
[2018-10-30] MEDS: FLUTICASONE PROP 0.05% 16 GM NASAL SPRAY NS SCH (10:15)
[2018-10-30] MEDS: NICOTINE POLACRILEX 2 MG GUM BUC PRN (21:35)
[2018-10-30] MEDS: THIAMINE HCL 100 MG TABLET (FP) PO SCH (21:35)
[2018-10-30] MEDS: MELATONIN 5 MG TABLETS PO PRN (21:36)
[2018-10-31] MEDS: FLUTICASONE PROP 0.05% 16 GM NASAL SPRAY NS SCH (10:23)
[2018-10-31] MEDS: amLODIPine BESYLATE 10 MG TABLET (FP) PO SCH (10:24)
[2018-10-31] MEDS: RIVAROXABAN 20 MG TABLET PO SCH (10:24)
[2018-10-31] MEDS: TRIAMCINOLONE ACET 0.1% CREAM 15 GM TUBE TP SCH ×2 (10:24→21:18)
[2018-10-31] MEDS: PRENATAL VITAMINS W/ FOLIC ACID TABLET (FP) PO SCH (10:24)
[2018-10-31] MEDS: LISINOPRIL 10 MG TABLET (FP) PO SCH (10:24)
[2018-10-31] MEDS: CARVEDILOL 12.5 MG TABLET (FP) PO SCH ×2 (10:24→21:17)
[2018-10-31] MEDS: BUPRENORPHINE/NALOXONE 8 MG/2 MG FILM PACKET SL SCH (10:25)
[2018-10-31] MEDS: THIAMINE HCL 100 MG TABLET (FP) PO SCH (21:17)
[2018-10-31] MEDS: NICOTINE POLACRILEX 2 MG GUM BUC PRN (21:18)
[2018-10-31] MEDS: MELATONIN 5 MG TABLETS PO PRN (21:18)
[2018-11-01] MEDS: BUPRENORPHINE/NALOXONE 8 MG/2 MG FILM PACKET SL SCH (10:31)
[2018-11-01] MEDS: FLUTICASONE PROP 0.05% 16 GM NASAL SPRAY NS SCH (10:32)
[2018-11-01] MEDS: amLODIPine BESYLATE 10 MG TABLET (FP) PO SCH (10:32)
[2018-11-01] MEDS: TRIAMCINOLONE ACET 0.1% CREAM 15 GM TUBE TP SCH ×2 (10:32→21:26)
[2018-11-01] MEDS: LISINOPRIL 10 MG TABLET (FP) PO SCH (10:32)
[2018-11-01] MEDS: CARVEDILOL 12.5 MG TABLET (FP) PO SCH ×2 (10:32→21:25)
[2018-11-01] MEDS: PRENATAL VITAMINS W/ FOLIC ACID TABLET (FP) PO SCH (10:32)
[2018-11-01] MEDS: NICOTINE POLACRILEX 2 MG GUM BUC PRN ×3 (10:34→19:04)
[2018-11-01] MEDS: MELATONIN 5 MG TABLETS PO PRN (21:25)
[2018-11-01] MEDS: THIAMINE HCL 100 MG TABLET (FP) PO SCH (21:25)
[2018-11-02] MEDS ORDERED: PT OWN MED DRAWER 7, Y5N ONE ×2 (08:31→21:41)
[2018-11-02] MEDS: BUPRENORPHINE/NALOXONE 8 MG/2 MG FILM PACKET SL SCH (10:12)
[2018-11-02] MEDS: FLUTICASONE PROP 0.05% 16 GM NASAL SPRAY NS SCH (10:12)
[2018-11-02] MEDS: RIVAROXABAN 20 MG TABLET PO SCH (10:12)
[2018-11-02] MEDS: PRENATAL VITAMINS W/ FOLIC ACID TABLET (FP) PO SCH (10:12)
[2018-11-02] MEDS: LISINOPRIL 10 MG TABLET (FP) PO SCH (10:12)
[2018-11-02] MEDS: CARVEDILOL 12.5 MG TABLET (FP) PO SCH ×2 (10:12→21:39)
[2018-11-02] MEDS: amLODIPine BESYLATE 10 MG TABLET (FP) PO SCH (10:12)
[2018-11-02] MEDS: TRIAMCINOLONE ACET 0.1% CREAM 15 GM TUBE TP SCH ×2 (10:14→21:41)
[2018-11-02] MEDS: NICOTINE POLACRILEX 2 MG GUM BUC PRN ×2 (10:20→21:39)
[2018-11-02] MEDS: THIAMINE HCL 100 MG TABLET (FP) PO SCH (21:39)
[2018-11-02] MEDS: MELATONIN 5 MG TABLETS PO PRN (21:39)
[2018-11-03] MEDS: TRIAMCINOLONE ACET 0.1% CREAM 15 GM TUBE TP SCH ×2 (10:00→21:28)
[2018-11-03] MEDS: FLUTICASONE PROP 0.05% 16 GM NASAL SPRAY NS SCH (10:21)
[2018-11-03] MEDS: PRENATAL VITAMINS W/ FOLIC ACID TABLET (FP) PO SCH (10:21)
[2018-11-03] MEDS: amLODIPine BESYLATE 10 MG TABLET (FP) PO SCH (10:21)
[2018-11-03] MEDS: LISINOPRIL 10 MG TABLET (FP) PO SCH (10:21)
[2018-11-03] MEDS: CARVEDILOL 12.5 MG TABLET (FP) PO SCH ×2 (10:21→21:29)
[2018-11-03] MEDS: BUPRENORPHINE/NALOXONE 8 MG/2 MG FILM PACKET SL SCH (10:22)
[2018-11-03] MEDS: NICOTINE POLACRILEX 2 MG GUM BUC PRN ×2 (10:28→16:38)
[2018-11-03] MEDS ORDERED: PT OWN MED DRAWER 7, Y5N ONE (10:30)
[2018-11-03] MEDS: MELATONIN 5 MG TABLETS PO PRN (21:29)
[2018-11-03] MEDS: THIAMINE HCL 100 MG TABLET (FP) PO SCH (21:29)
[2018-11-04] MEDS ORDERED: PT OWN MED DRAWER 7, Y5N ONE ×2 (08:53)
[2018-11-04] MEDS: RIVAROXABAN 20 MG TABLET PO SCH (09:05)
[2018-11-04] MEDS: BUPRENORPHINE/NALOXONE 8 MG/2 MG FILM PACKET SL SCH (09:05)
[2018-11-04] MEDS: CARVEDILOL 12.5 MG TABLET (FP) PO SCH ×2 (09:06→21:10)
[2018-11-04] MEDS: PRENATAL VITAMINS W/ FOLIC ACID TABLET (FP) PO SCH (09:06)
[2018-11-04] MEDS: TRIAMCINOLONE ACET 0.1% CREAM 15 GM TUBE TP SCH ×2 (09:06→21:10)
[2018-11-04] MEDS: LISINOPRIL 10 MG TABLET (FP) PO SCH (09:06)
[2018-11-04] MEDS: amLODIPine BESYLATE 10 MG TABLET (FP) PO SCH (09:06)
[2018-11-04] MEDS: FLUTICASONE PROP 0.05% 16 GM NASAL SPRAY NS SCH (09:06)
[2018-11-04] MEDS: NICOTINE POLACRILEX 2 MG GUM BUC PRN ×2 (09:09→21:11)
[2018-11-04] MEDS: MELATONIN 5 MG TABLETS PO PRN (21:10)
[2018-11-04] MEDS: THIAMINE HCL 100 MG TABLET (FP) PO SCH (21:10)
[2018-11-05] MEDS ORDERED: PT OWN MED DRAWER 7, Y5N ONE (08:54)
[2018-11-05] MEDS: PRENATAL VITAMINS W/ FOLIC ACID TABLET (FP) PO SCH (10:36)
[2018-11-05] MEDS: BUPRENORPHINE/NALOXONE 8 MG/2 MG FILM PACKET SL SCH (10:36)
[2018-11-05] MEDS: FLUTICASONE PROP 0.05% 16 GM NASAL SPRAY NS SCH (10:37)
[2018-11-05] MEDS: TRIAMCINOLONE ACET 0.1% CREAM 15 GM TUBE TP SCH ×2 (10:37→21:34)
[2018-11-05] MEDS: CARVEDILOL 12.5 MG TABLET (FP) PO SCH ×2 (11:10→21:32)
[2018-11-05] MEDS: LISINOPRIL 10 MG TABLET (FP) PO SCH (11:10)
[2018-11-05] MEDS: amLODIPine BESYLATE 10 MG TABLET (FP) PO SCH (11:10)
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
[2018-11-05] MEDS: NICOTINE POLACRILEX 2 MG GUM BUC PRN (17:41)
[2018-11-05] MEDS: THIAMINE HCL 100 MG TABLET (FP) PO SCH (21:32)
[2018-11-05] MEDS: CITALOPRAM HYDROBROMIDE 20 MG TABLET (FP) PO SCH (21:32)
[2018-11-05] MEDS: ARIPiprazole 5 MG TABLET (FP) PO SCH (21:33)
[2018-11-05] MEDS: SUVOREXANT 10 MG TABLET PO PRN (22:17)
[2018-11-06] MEDS ORDERED: PT OWN MED DRAWER 7, Y5N ONE ×4 (09:35→21:42)
[2018-11-06] MEDS: FLUTICASONE PROP 0.05% 16 GM NASAL SPRAY NS SCH (10:27)
[2018-11-06] MEDS: CITALOPRAM HYDROBROMIDE 20 MG TABLET (FP) PO SCH (10:27)
[2018-11-06] MEDS: BUPRENORPHINE/NALOXONE 8 MG/2 MG FILM PACKET SL SCH (10:27)
[2018-11-06] MEDS: amLODIPine BESYLATE 10 MG TABLET (FP) PO SCH (10:28)
[2018-11-06] MEDS: TRIAMCINOLONE ACET 0.1% CREAM 15 GM TUBE TP SCH ×2 (10:28→21:43)
[2018-11-06] MEDS: ARIPiprazole 5 MG TABLET (FP) PO SCH (10:28)
[2018-11-06] MEDS: CARVEDILOL 12.5 MG TABLET (FP) PO SCH ×2 (10:28→21:42)
[2018-11-06] MEDS: PRENATAL VITAMINS W/ FOLIC ACID TABLET (FP) PO SCH (10:28)
[2018-11-06] MEDS: LISINOPRIL 10 MG TABLET (FP) PO SCH (10:28)
[2018-11-06] MEDS: RIVAROXABAN 20 MG TABLET PO SCH (10:30)
[2018-11-06] MEDS: NICOTINE POLACRILEX 2 MG GUM BUC PRN ×2 (10:31→17:50)
[2018-11-06] MEDS ORDERED: MINERAL OIL/PETROLAT/WATER TOPICAL CREAM 454 GM JAR TP PRN (16:15)
--- NOTE | 2018-11-06 16:28 | PN ---
[facility] Progress Note (SOAP) Subjective: patient c/o itchy skin. PMHx of HIV disease, 3rd stage. Denies hx of bedbugs, however, in consultation with her PCP at the [facility], was informed that the patient did endorse bedbugs at her present domicile. Consultation with her HIV Specialist indicated that she is on Prezista and Genvoya (resistance coverage). Objective: SKIN: Round, scaly lesions over legs, arms, back, upper chest. The only areas not affected are her breasts and buttocks, abdomen. Lesions are in various stages of resolution. 11/06/18 16:25 Assessment: Bedbug bites HIV disease 11/06/18 16:26 Plan: For the bedbug bites: permethrin was ordered, after application, benadryl cream for itching and eucerin for moisture/comfort. HIV Disease: consulted with HIV Specialist, ordered Genvoya and Prezista, Dapsone and Azithromycin.
[2018-11-06] MEDS ORDERED: PERMETHRIN 5% TOPICAL CREAM 60 GM TUBE TP ONE (17:00)
[2018-11-06] MEDS: THIAMINE HCL 100 MG TABLET (FP) PO SCH (21:39)
[2018-11-06] MEDS: SUVOREXANT 10 MG TABLET PO PRN (21:40)
[2018-11-07] MEDS ORDERED: PT OWN MED DRAWER 7, Y5N ONE ×2 (03:24→08:50)
[2018-11-07] MEDS: DARUNAVIR ETHANOLATE 800 MG TAB PO SCH (07:55)
[2018-11-07] MEDS: ELVITEG/COB/EMTRI/TENOF (GENVOYA) TABLET (NF) PO SCH (07:55)
[2018-11-07] MEDS ORDERED: ELVITEG/COB/EMTRI/TENOFO (STRIBILD) TABLET -NF PO SCH (10:00)
[2018-11-07] MEDS: ARIPiprazole 5 MG TABLET (FP) PO SCH (10:12)
[2018-11-07] MEDS: TRIAMCINOLONE ACET 0.1% CREAM 15 GM TUBE TP SCH ×2 (10:13→21:20)
[2018-11-07] MEDS: PRENATAL VITAMINS W/ FOLIC ACID TABLET (FP) PO SCH (10:14)
[2018-11-07] MEDS: DAPSONE 100 MG TABLET PO SCH (10:14)
[2018-11-07] MEDS: CITALOPRAM HYDROBROMIDE 20 MG TABLET (FP) PO SCH (10:14)
[2018-11-07] MEDS: FLUTICASONE PROP 0.05% 16 GM NASAL SPRAY NS SCH (10:15)
[2018-11-07] MEDS: BUPRENORPHINE/NALOXONE 8 MG/2 MG FILM PACKET SL SCH (10:15)
[2018-11-07] MEDS: CARVEDILOL 12.5 MG TABLET (FP) PO SCH ×2 (10:15→21:20)
[2018-11-07] MEDS: amLODIPine BESYLATE 10 MG TABLET (FP) PO SCH (10:16)
[2018-11-07] MEDS: LISINOPRIL 10 MG TABLET (FP) PO SCH (10:16)
[2018-11-07] MEDS: NICOTINE POLACRILEX 2 MG GUM BUC PRN (10:32)
[2018-11-07] MEDS: SUVOREXANT 10 MG TABLET PO PRN (21:20)
[2018-11-07] MEDS: THIAMINE HCL 100 MG TABLET (FP) PO SCH (21:20)
[2018-11-08] MEDS ORDERED: PT OWN MED DRAWER 7, Y5N ONE ×3 (08:22→18:16)
[2018-11-08] MEDS: DARUNAVIR ETHANOLATE 800 MG TAB PO SCH (08:50)
[2018-11-08] MEDS: ELVITEG/COB/EMTRI/TENOF (GENVOYA) TABLET (NF) PO SCH (08:50)
[2018-11-08] MEDS: ARIPiprazole 5 MG TABLET (FP) PO SCH (09:54)
[2018-11-08] MEDS: BUPRENORPHINE/NALOXONE 8 MG/2 MG FILM PACKET SL SCH (09:54)
[2018-11-08] MEDS: CITALOPRAM HYDROBROMIDE 20 MG TABLET (FP) PO SCH (09:54)
[2018-11-08] MEDS: amLODIPine BESYLATE 10 MG TABLET (FP) PO SCH (09:55)
[2018-11-08] MEDS: LISINOPRIL 10 MG TABLET (FP) PO SCH (09:55)
[2018-11-08] MEDS: CARVEDILOL 12.5 MG TABLET (FP) PO SCH ×2 (09:55→21:21)
[2018-11-08] MEDS: FLUTICASONE PROP 0.05% 16 GM NASAL SPRAY NS SCH (09:55)
[2018-11-08] MEDS: DAPSONE 100 MG TABLET PO SCH (09:56)
[2018-11-08] MEDS: PRENATAL VITAMINS W/ FOLIC ACID TABLET (FP) PO SCH (09:56)
[2018-11-08] MEDS: TRIAMCINOLONE ACET 0.1% CREAM 15 GM TUBE TP SCH ×2 (09:58→21:23)
[2018-11-08] MEDS: RIVAROXABAN 20 MG TABLET PO SCH (09:58)
[2018-11-08] MEDS: THIAMINE HCL 100 MG TABLET (FP) PO SCH (21:21)
[2018-11-08] MEDS ORDERED: SUVOREXANT 10 MG TABLET PO PRN (22:00)
[2018-11-09] MEDS ORDERED: PT OWN MED DRAWER 7, Y5N ONE ×5 (05:51→13:15)
[2018-11-09] MEDS: DARUNAVIR ETHANOLATE 800 MG TAB PO SCH (07:37)
[2018-11-09] MEDS: ELVITEG/COB/EMTRI/TENOF (GENVOYA) TABLET (NF) PO SCH (07:37)
[2018-11-09] MEDS: ARIPiprazole 5 MG TABLET (FP) PO SCH (09:40)
[2018-11-09] MEDS: TRIAMCINOLONE ACET 0.1% CREAM 15 GM TUBE TP SCH ×2 (09:43→21:10)
[2018-11-09] MEDS: CITALOPRAM HYDROBROMIDE 20 MG TABLET (FP) PO SCH (09:44)
[2018-11-09] MEDS: PRENATAL VITAMINS W/ FOLIC ACID TABLET (FP) PO SCH (09:44)
[2018-11-09] MEDS: CARVEDILOL 12.5 MG TABLET (FP) PO SCH ×2 (09:45→21:10)
[2018-11-09] MEDS: amLODIPine BESYLATE 10 MG TABLET (FP) PO SCH (09:45)
[2018-11-09] MEDS: FLUTICASONE PROP 0.05% 16 GM NASAL SPRAY NS SCH (09:46)
[2018-11-09] MEDS ORDERED: ONDANSETRON *ODT* 4 MG TABLET SL PRN (09:46)
[2018-11-09] MEDS: LISINOPRIL 10 MG TABLET (FP) PO SCH (09:46)
[2018-11-09] MEDS: BUPRENORPHINE/NALOXONE 8 MG/2 MG FILM PACKET SL SCH (09:46)
[2018-11-09] MEDS: NICOTINE POLACRILEX 2 MG GUM BUC PRN ×3 (09:50→21:12)
[2018-11-09] MEDS: DAPSONE 100 MG TABLET PO SCH (10:30)
[2018-11-09] MEDS: THIAMINE HCL 100 MG TABLET (FP) PO SCH (21:10)
[2018-11-10] MEDS ORDERED: PT OWN MED DRAWER 7, Y5N ONE ×4 (06:01→15:55)
[2018-11-10] MEDS: DARUNAVIR ETHANOLATE 800 MG TAB PO SCH (07:51)
[2018-11-10] MEDS: ELVITEG/COB/EMTRI/TENOF (GENVOYA) TABLET (NF) PO SCH (07:51)
[2018-11-10] MEDS: RIVAROXABAN 20 MG TABLET PO SCH (10:02)
[2018-11-10] MEDS: PRENATAL VITAMINS W/ FOLIC ACID TABLET (FP) PO SCH (10:02)
[2018-11-10] MEDS: CITALOPRAM HYDROBROMIDE 20 MG TABLET (FP) PO SCH (10:02)
[2018-11-10] MEDS: LISINOPRIL 10 MG TABLET (FP) PO SCH (10:02)
[2018-11-10] MEDS: CARVEDILOL 12.5 MG TABLET (FP) PO SCH ×2 (10:02→21:18)
[2018-11-10] MEDS: amLODIPine BESYLATE 10 MG TABLET (FP) PO SCH (10:03)
[2018-11-10] MEDS: DAPSONE 100 MG TABLET PO SCH (10:03)
[2018-11-10] MEDS: ARIPiprazole 5 MG TABLET (FP) PO SCH (10:03)
[2018-11-10] MEDS: BUPRENORPHINE/NALOXONE 8 MG/2 MG FILM PACKET SL SCH (10:04)
[2018-11-10] MEDS: TRIAMCINOLONE ACET 0.1% CREAM 15 GM TUBE TP SCH ×2 (10:04→21:19)
[2018-11-10] MEDS: FLUTICASONE PROP 0.05% 16 GM NASAL SPRAY NS SCH (10:04)
[2018-11-10] MEDS: NICOTINE POLACRILEX 2 MG GUM BUC PRN (10:19)
[2018-11-10] MEDS: THIAMINE HCL 100 MG TABLET (FP) PO SCH (21:18)
[2018-11-11] MEDS ORDERED: PT OWN MED DRAWER 7, Y5N ONE ×3 (06:13→10:42)
[2018-11-11] MEDS: DARUNAVIR ETHANOLATE 800 MG TAB PO SCH (07:48)
[2018-11-11] MEDS: ELVITEG/COB/EMTRI/TENOF (GENVOYA) TABLET (NF) PO SCH (07:48)
[2018-11-11] MEDS: FLUTICASONE PROP 0.05% 16 GM NASAL SPRAY NS SCH (10:02)
[2018-11-11] MEDS: CITALOPRAM HYDROBROMIDE 20 MG TABLET (FP) PO SCH (10:03)
[2018-11-11] MEDS: ARIPiprazole 5 MG TABLET (FP) PO SCH (10:03)
[2018-11-11] MEDS: DAPSONE 100 MG TABLET PO SCH (10:04)
[2018-11-11] MEDS: PRENATAL VITAMINS W/ FOLIC ACID TABLET (FP) PO SCH (10:04)
[2018-11-11] MEDS: CARVEDILOL 12.5 MG TABLET (FP) PO SCH ×2 (10:04→21:15)
[2018-11-11] MEDS: LISINOPRIL 10 MG TABLET (FP) PO SCH (10:04)
[2018-11-11] MEDS: amLODIPine BESYLATE 10 MG TABLET (FP) PO SCH (10:04)
[2018-11-11] MEDS: TRIAMCINOLONE ACET 0.1% CREAM 15 GM TUBE TP SCH ×2 (10:05→21:14)
[2018-11-11] MEDS ORDERED: BUPRENORPHINE/NALOXONE 8 MG/2 MG FILM PACKET SL ONE (10:45)
[2018-11-11] MEDS: THIAMINE HCL 100 MG TABLET (FP) PO SCH (21:15)
[2018-11-11] MEDS: hydrOXYzine PAMOATE 25 MG CAPSULE (FP) PO PRN (21:16)
[2018-11-12] MEDS: ELVITEG/COB/EMTRI/TENOF (GENVOYA) TABLET (NF) PO SCH (07:57)
[2018-11-12] MEDS: DARUNAVIR ETHANOLATE 800 MG TAB PO SCH (07:57)
[2018-11-12] MEDS ORDERED: PT OWN MED DRAWER 7, Y5N ONE (08:40)
[2018-11-12] MEDS: ARIPiprazole 5 MG TABLET (FP) PO SCH (10:17)
[2018-11-12] MEDS: FLUTICASONE PROP 0.05% 16 GM NASAL SPRAY NS SCH (10:17)
[2018-11-12] MEDS: RIVAROXABAN 20 MG TABLET PO SCH (10:17)
[2018-11-12] MEDS: BUPRENORPHINE/NALOXONE 8 MG/2 MG FILM PACKET SL SCH (10:17)
[2018-11-12] MEDS: TRIAMCINOLONE ACET 0.1% CREAM 15 GM TUBE TP SCH ×2 (10:17→21:19)
[2018-11-12] MEDS: CARVEDILOL 12.5 MG TABLET (FP) PO SCH ×2 (10:18→21:19)
[2018-11-12] MEDS: PRENATAL VITAMINS W/ FOLIC ACID TABLET (FP) PO SCH (10:18)
[2018-11-12] MEDS: DAPSONE 100 MG TABLET PO SCH (10:18)
[2018-11-12] MEDS: LISINOPRIL 10 MG TABLET (FP) PO SCH (10:18)
[2018-11-12] MEDS: CITALOPRAM HYDROBROMIDE 20 MG TABLET (FP) PO SCH (10:18)
[2018-11-12] MEDS: amLODIPine BESYLATE 10 MG TABLET (FP) PO SCH (10:18)
--- NOTE | 2018-11-12 13:51 | PN ---
[facility] Progress Note Note: Patient is scheduled for discharge tomorrow. Scripts for 30 days supply of medications(Abilify 5 mg/day, Celexa 20 mg/day) will be electronically transmitted to [facility] at [address] [place] [address]
--- NOTE | 2018-11-12 14:35 | DS ---
[facility] Rehab Discharge Summary - [facility] Rehab Discharge Summary Admission Date: 10/29/18 Discharge Date: 11/13/18 - History Present History: Cannabis dependence, Cocaine dependence, Opioid dependence Pertinent Past History: this 38 years old female with heroin abused,cocaine dependence,marijuana abused, suboxone maintenance last treatment [facility] and rehab 2012 multiple medical problems,hiv since 2003,follow up with [facility],non compliance with medication chronic bronchitis non hodgkin's lymphoma left side of brain operation in [address] [facility] and on Chemotherapy ,has in situ Portacath hypertension,borderline dm bipolar disorder,depression nicotine dependence 10 cigarettes longest sobriety 4 and half year homeless history of pulmonary embolism in 2017 - Discharge Physical Exam Vital Signs: Vital Signs Temperature 97.8 F 11/12/18 07:29 Pulse Rate 71 11/12/18 09:14 Respiratory Rate 17 11/12/18 09:14 Blood Pressure 110/73 11/12/18 09:14 O2 Sat by Pulse Oximetry (%) Pertinent Admission Physical Exam Findings: Physical General Appearance: Yes: No Apparent Distress HEENTM: Yes: Normal ENT Inspection, RILEY, Pharynx Normal, Other (swelling with pain nose) Respiratory: Yes: Lungs Clear, Normal Breath Sounds, No Respiratory Distress, Surgical Scar (portal cath right chest wall) Neck: Yes: Within Normal Limits, Supple, Trachea in good position Breast: Yes: Breast Exam Deferred Cardiology: Yes: Within Normal Limits, Regular Rhythm, Regular Rate, S1, S2 Abdominal: Yes: Within Normal Limits, Normal Bowel Sounds, Non Tender, Flat, Soft Genitourinary: Yes: Within Normal Limits Back: Yes: Within Normal Limits Musculoskeletal: Yes: Within Normal Limits, Muscle Pain Extremities: Yes: Within Normal Limits Neurological: Yes: x ray equipment servicer II-XII NML intact, Fully Oriented, Alert, Motor Strength 5/5 Integumentary: Yes: Other (multiple hyperpigmentation body,extremities from skin piking) - Treatment Discharge Condition: Discharge condition good Hospital Course: patient was adherent to treatment plan and medication regimen. Patient has lesions all over body related to bedbug bites and was treated for same. Patient was started on HIV medication regimen as per consultation with Ms. Carmen Pham NP at [facility]. Patient had 1:1 meeting with counselor, attended groups. - Medication Discharge Medications: Ambulatory Orders Albuterol 0.083% Nebulizer Noa [Ventolin 0.083% Nebulizer Soln -] 1 neb NEB Q6H PRN #100 vial 04/17/18 Aripiprazole [Abilify] 5 mg PO AM #30 tablet 05/09/18 Citalopram Hydrobromide [Celexa -] 20 mg PO DAILY #30 tablet 05/09/18 Chlorhexidine Gluconate [Peridex -] 15 ml MM BID #1 bottle 05/18/18 Buprenorphine HCl/Naloxone HCl [Suboxone 8 mg-2 mg Sl Tablets] 1 each SL DAILY 05/29/18 Alcohol Antiseptic Pads [Alcohol Prep Pads] 1 each TP TID #1 box 06/14/18 Container,Empty [Sharps Container] 1 each MC ASDIR #1 each 06/14/18 Lancets [Lancets Ultra Thin] 1 each MC TID #100 each 06/14/18 Miscellaneous Medical Supply [Glucometer Test Strips #100] 1 each RANDY TID #1 box 06/14/18 Acetaminophen [Tylenol .Regular Strength -] 650 mg PO Q6H PRN #40 tablet MDD 8 tabs 10/23/18 Albuterol Sulfate Inhaler - [Ventolin HFA Inhaler -] 1 - 2 inh PO Q6H PRN #1 inhaler 10/23/18 Amlodipine Besylate [Norvasc -] 10 mg PO DAILY #30 tablet 10/23/18 Budesonide [Pulmicort Flexhaler] 2 puff IH BID #1 aer.pow.[email or web address] 10/23/18 Carboxymethyl/Gly/Poly80/Pf [Refresh Optive Advanced Drops] 1 drop OU QID #1 droperette 10/23/18 Carvedilol [Coreg -] 12.5 mg PO BID #60 tablet 10/23/18 Dapsone - 100 mg PO DAILY #30 tablet 10/23/18 Darunavir Ethanolate [Prezista -] 800 mg PO DAILY #30 tablet 10/23/18 Elviteg/Cob/Emtri/Tenof Alafen [Genvoya (Non-Formulary)] 1 each PO DAILY #30 tablet 10/23/18 Fluticasone Prop 0.05% Nasal [Flonase -] 1 - 2 spray NS DAILY #1 spray.pump Ketotifen Fumarate [Allergy Eye Drops] 1 drop OU BID PRN #10 ml 10/23/18 Loratadine [Claritin -] 10 mg PO DAILY PRN #30 tablet 10/23/18 Miscellaneous Medical Supply [Glucometer Device] 1 each ASDIR #1 kit Rivaroxaban [Xarelto -] 20 mg PO Q2D #15 tablet 10/23/18 Triamcinolone 0.1% Cream [Aristocort 0.1% Cream -] 1 applic TP BID #60 tube Lisinopril [Prinivil] 10 mg PO DAILY 10/29/18 Aripiprazole [Abilify -] 5 mg PO DAILY #30 tablet 11/12/18 Citalopram Hydrobromide [Celexa -] 20 mg PO DAILY #30 tablet 11/12/18 - Medication-Assisted Treatment (MAT) MAT Follow-up Referral: Patient states she will seek Suboxone treatment on her own and refused referral. - Discharge Instructions Diet, activity, other medical instructions: Diet: As tolerated Activity: As tolerated Other medical instructions:patient refused referral to aftercare. States she will seek care on her own. Patient also receives care from the [facility]. Patient was encouraged to return to [facility] and to seek aftercare at [facility]. - Diagnosis (1) Cannabis dependence Status: Chronic (2) Cocaine dependence Status: Chronic Qualifiers: Substance use status: uncomplicated Qualified Code(s): F14.20 - Cocaine dependence, uncomplicated (3) Diabetes mellitus Status: Chronic Qualifiers: Diabetes mellitus type: type 2 Diabetes mellitus complication status: without complication (4) HIV (human immunodeficiency virus infection) Status: Chronic Qualifiers: HIV symptom status: symptomatic Qualified Code(s): B20 - Human immunodeficiency virus [HIV] disease (5) Insect bites Status: Acute Qualifiers: Encounter type: sequela Site of insect bite: lower leg (6) Polysubstance (including opioids) dependence, daily use Status: Chronic - Follow-up Referral Minutes to complete discharge: 20 - AMA Did Patient Leave Against Medical Advice: No Additional Comments: patient refuses aftercare referral. Confirmed with counselor.
[2018-11-12] MEDS: THIAMINE HCL 100 MG TABLET (FP) PO SCH (21:19)
[2018-11-12] MEDS: hydrOXYzine PAMOATE 25 MG CAPSULE (FP) PO PRN (21:19)
[2018-11-13] MEDS ORDERED: PT OWN MED DRAWER 7, Y5N ONE ×3 (05:10→09:17)
[2018-11-13 06:53] VITALS: BP 119/79; PULSE 16; TEMP 98.1
[2018-11-13] MEDS: DARUNAVIR ETHANOLATE 800 MG TAB PO SCH (07:32)
[2018-11-13] MEDS: ELVITEG/COB/EMTRI/TENOF (GENVOYA) TABLET (NF) PO SCH (07:32)
[2018-11-13] MEDS: TRIAMCINOLONE ACET 0.1% CREAM 15 GM TUBE TP SCH (09:09)
[2018-11-13] MEDS: amLODIPine BESYLATE 10 MG TABLET (FP) PO SCH (09:10)
[2018-11-13] MEDS: CARVEDILOL 12.5 MG TABLET (FP) PO SCH (09:10)
[2018-11-13] MEDS: BUPRENORPHINE/NALOXONE 8 MG/2 MG FILM PACKET SL SCH (09:10)
[2018-11-13] MEDS: LISINOPRIL 10 MG TABLET (FP) PO SCH (09:11)
[2018-11-13] MEDS: DAPSONE 100 MG TABLET PO SCH (09:11)
[2018-11-13] MEDS: CITALOPRAM HYDROBROMIDE 20 MG TABLET (FP) PO SCH (09:11)
[2018-11-13] MEDS: ARIPiprazole 5 MG TABLET (FP) PO SCH (09:12)
[2018-11-13] MEDS: FLUTICASONE PROP 0.05% 16 GM NASAL SPRAY NS SCH (09:13)
[2018-11-13] MEDS: PRENATAL VITAMINS W/ FOLIC ACID TABLET (FP) PO SCH (09:16)
== END 2018-11-13 09:27 | disposition home or self-care (01) | DRG 772 ==
LOC: YASAS 08:12 → Y3E 10:42
PROVIDERS: ADMIT Neuromusculoskeletal Medicine & OMM; ATTEND Neuromusculoskeletal Medicine & OMM
PROC: HZ42ZZZ Group Counseling for Substance Abuse Treatment, Cognitive-Behavioral (ICD-10-PCS; principal; 2018-10-29)
DX: F14.20 Cocaine dependence, uncomplicated (principal); F11.20 Opioid dependence, uncomplicated; F12.20 Cannabis dependence, uncomplicated; F17.210 Nicotine dependence, cigarettes, uncomplicated; F43.10 Post-traumatic stress disorder, unspecified; F19.24 Other psychoactive substance dependence with psychoactive substance-induced mood disorder; F19.282 Other psychoactive substance dependence with psychoactive substance-induced sleep disorder; F31.9 Bipolar disorder, unspecified; E11.9 Type 2 diabetes mellitus without complications; B20 Human immunodeficiency virus [HIV] disease; C85.80 Other specified types of non-Hodgkin lymphoma, unspecified site; S80.862S Insect bite (nonvenomous), left lower leg, sequela; S80.861S Insect bite (nonvenomous), right lower leg, sequela; S40.8 Other superficial injuries of upper arm; S40.861S Insect bite (nonvenomous) of right upper arm, sequela; S20.4 Other and unspecified superficial injuries of back wall of thorax; S20.461S Insect bite (nonvenomous) of right back wall of thorax, sequela; W57.XXXS Bitten or stung by nonvenomous insect and other nonvenomous arthropods, sequela; Z92.21 Personal history of antineoplastic chemotherapy; Z86.711 Personal history of pulmonary embolism; Z88.0 Allergy status to penicillin; Z88.1 Allergy status to other antibiotic agents; Z95.9 Presence of cardiac and vascular implant and graft, unspecified; Z86.011 Personal history of benign neoplasm of the brain; Z91.14 Patient's other noncompliance with medication regimen; Z59.0 Homelessness
CPT/HCPCS: 36415; 80053; 81003; 81025; 82962; 85027; 86480; 86593

== ENCOUNTER → 2018-11-06 | Outpatient (CLI) | payer OTHER | LOC: YHH 11:53 ==